=== PATIENT | male | born 1940 | race Caucasian/White ===

== ENCOUNTER 2018-08-22 09:21 | Inpatient (IN) ==
[2018-08-22 10:28] LABS: Baso % (Auto) 0.3 % (0.0-2.0); Hematocrit 22.2 % (39.0-51.0); Hemoglobin 7.3 gm/dL (13.0-17.0); Lymph # (Auto) 1.6 th/mm3 (1.0-4.8); Lymph % (Auto) 12.2 % (9.0-44.0); Mean Corpuscular HGB Conc 32.9 % (32.0-36.0); Mean Corpuscular Hemoglobin 30.1 pg (27.0-34.0); Mean Corpuscular Volume 91.3 fL (80.0-100.0); Mean Platelet Volume 10.3 fL (7.0-11.0); Mono % (Auto) 7.2 % (0.0-8.0); Neut # (Auto) 10.9 th/mm3 (1.8-7.7); Neut % (Auto) 80.3 % (16.0-70.0); Platelet Count 199 th/mm3 (150-450); Red Blood Count 2.43 mil/mm3 (4.50-5.90); Red Cell Distribution Width 17.3 % (11.6-17.2); White Blood Count 13.5 th/mm3 (4.0-11.0)
--- NOTE | 2018-08-22 10:29 | XR ---
EXAM DATE: 08/22/2018 10:07 AM EDT AGE/SEX: 78 years / Male INDICATIONS: Short of breath. CLINICAL DATA: This is the patient's initial encounter. Patient reports that signs and symptoms have been present for 1 day and indicates a pain score of 0/10. MEDICAL/SURGICAL HISTORY: Congestive heart failure. None. COMPARISON: No prior exams available for comparison. FINDINGS: The heart is enlarged. Increased interstitial infiltrates are noted bilaterally consistent with moder ate pulmonary edema or pneumonia. Small right pleural effusion is noted. Degenerative changes are not ed involving the shoulders bilaterally. CONCLUSION: 1. Diffuse interstitial infiltrates consistent with moderate pulmonary edema versus pneumonia. Clini kaur correlation is recommended. 2. Cardiomegaly. 3. Small right pleural effusion. 4. Degenerative changes involving the shoulders bilaterally. Electronically signed by: Edgar Clarke MD 08/22/2018 10:28 AM EDT
[2018-08-22 10:38] LABS: Alanine Aminotransferase 272 U/L (12-78); Albumin 2.3 g/dL (3.4-5.0); Anion Gap 21 meq/L (5-15); Aspartate Aminotransferase 464 U/L (15-37); Blood Urea Nitrogen 31 mg/dL (7-18); Calcium 7.8 mg/dL (8.5-10.1); Carbon Dioxide 19.2 meq/L (21.0-32.0); Chloride 98 meq/L (98-107); Glomerular Filtration Rate 34 mL/min (>89); Glucose,Random 181 mg/dL (74-106); INR 1.7 Ratio; Potassium 5.3 meq/L (3.5-5.1); Prothrombin Time 16.7 sec (9.8-11.6); Sodium 138 meq/L (136-145)
[2018-08-22 10:42] LABS: Alkaline Phosphatase 64 U/L (45-117); Total Protein 5.7 g/dL (6.4-8.2)
[2018-08-22 10:45] LABS: Troponin I 5.46 ng/mL (0.02-0.05)
[2018-08-22] MEDS ORDERED: Sodium Chlor 0.9% Inj 500 ML IV.SIG SCH (11:00)
--- NOTE | 2018-08-22 11:04 | CT ---
EXAM DATE: 08/22/2018 10:10 AM EDT AGE/SEX: 78 years / Male INDICATIONS: Altered mental status. CLINICAL DATA: This is the patient's initial encounter. Patient reports that signs and symptoms have been present for 1 day and indicates a pain score of 2/10. MEDICAL/SURGICAL HISTORY: Congestive heart failure. Chronic obstructive pulmonary disease. Hypert ension. heart attack None. RADIATION DOSE: 6634 CTDI (mGy) COMPARISON: No prior exams available for comparison. TECHNIQUE: CT of the head without contrast. Using automated exposure control and adjustment of the mA and/or kV according to patient size, radiation dose was kept as low as reasonably achievable to ob tain optimal diagnostic quality images. DICOM format image data is available electronically for revi ew and comparison. FINDINGS: Cerebrum: The ventricles are normal for age. No evidence of midline shift, mass lesion, hemorrhage or acute infarction. No extraaxial fluid collections are seen. Posterior Fossa: The cerebellum and brainstem are intact. The 4th ventricle is midline. The cerebe llopontine angle is unremarkable. Extracranial: The visualized portion of the orbits is intact. Skull: The calvaria is intact. No evidence of skull fracture. CONCLUSION: 1. Negative for an acute process . Electronically signed by: Asad Cevallos MD 08/22/2018 11:02 AM EDT
[2018-08-22 11:37] LABS: Bilirubin,Urine Negative (Negative); Clarity,Urine Clear (Clear); Color,Urine Yellow (Yellw/Straw); Glucose,Urine (UA) Negative (Negative); Leukocyte Esterase,Urine Negative (Negative); Mucus,Urine Few /lpf (Occasional); Nitrite,Urine Negative (Negative); Specific Gravity,Urine 1.009 (1.002-1.035); Squamous Epithelial Cell,Urine 1 /hpf (0-5)
--- NOTE | 2018-08-22 11:52 | ED ---
HPI General Chief Complaint: Syncope Stated Complaint: Syncope Time Seen by Provider: 08/22/18 09:31 Source: EMS, RN notes reviewed and old records reviewed Mode of arrival: EMS Limitations: altered mental status History of Present Illness HPI narrative: The patient 78 years old and arrives by EMS from [facility]. He was sat upright in bed by his physician there and evidently experienced a near syncope episode twice. He arrives to the ED unable to participate with history and physical exam due to fatigue and decreased interaction overall. The patient arrives with paperwork from outside hospital, [facility], which reveals history of COPD, atrial fibrillation on Eliquis, CHF with an EF of 25-30%, new lung masses, NSTEMI status post coronary catheterization with circumflex, RCA and LAD disease however it is unclear if stenting was performed based on available records. MD complaint: felt faint and almost passed out Onset (ago): minute(s) (30) -: second(s) Witnessed: yes - by bystander Context: at rest Injuries sustained associated with event: none Current symptoms: none Related Data Home Medications Medication Instructions Recorded Confirmed apixaban [Eliquis] 5 mg PO BID 08/22/18 08/22/18 aspirin 325 mg PO DAILY 08/22/18 08/22/18 carvedilol [Coreg] 3.125 mg PO BID 08/22/18 08/22/18 formoterol fumarate 2 ml INHALATION BID 08/22/18 08/22/18 furosemide [Lasix] 20 mg PO BID 08/22/18 08/22/18 ipratropium-albuterol 3 ml INHALATION Q6HR PRN 08/22/18 08/22/18 lisinopril 2.5 mg PO DAILY 08/22/18 08/22/18 potassium chloride 10 meq PO BID 08/22/18 08/22/18 Allergies Allergy/AdvReac Type Severity Reaction Status Date / Time heparin Allergy Hives Verified 08/22/18 09:32 Review of Systems ROS: all other systems reviewed are negative [facility] Medical History Medical History A-fib (Acute) CHF (congestive heart failure) (Acute) COPD (chronic obstructive pulmonary disease) (Acute) Chest pain (Acute) HTN (hypertension) (Acute) Heart attack (Acute) Lung mass (Acute) Social History Social History Substance History: No History of Abuse Smoking Status: Current some day smoker Tobacco Type: Cigarettes How Often Do You Have a Drink Containing Alcohol: Never Recent Travel in [facility] [[email or web address]] within the Last 8 Weeks: No Recent Out of Country Travel within the Last 8 Weeks: No Exam Narrative Exam Narrative: GENERAL: 78-year-old male, whispers yes or no occasionally to some questions however does not speak in sentences and shift his gaze forward or away during the interview SKIN: Large ecchymosis overlying the right lateral chest wall. HEAD: Atraumatic. Normocephalic. EYES: Pupils equal and round. No scleral icterus. No injection or drainage. ENT: No nasal bleeding or discharge. Mucous membranes pink and moist. NECK: Trachea midline. No JVD. CARDIOVASCULAR: Heart rate approximately 95. Regular RESPIRATORY: Coarse breath sounds bilaterally GASTROINTESTINAL: Abdomen soft, non-tender, nondistended. Hepatic and splenic margins not palpable. RECTAL: Large volume of black stool. Stool guaiac positive MUSCULOSKELETAL: Global atrophy. No gross deformity. NEUROLOGICAL: No focal cranial nerve deficit. ANO x1. PSYCHIATRIC: Unable to assess Procedures Intubation Time Out Performed: No Sedative: etomidate Mg Given: 20 Paralytic: succinylcholine Mg Given: 100 Laryngoscope: Holden ET Tube Size: 8 ET Tube Uncuffed: Yes Tube Secured Depth (cm): 24 Tube Secured Location: lips Tube Placement Confirmation: visualized tube passing through cords, equal breath sounds bilaterally, no breath sounds over epigastrium and confirmation by capnometry Patient Tolerated Procedure: well Intubation Complications: none Course Initial Documented Vital Signs Temperature 97.9 F 08/22/18 09:32 Pulse Rate 96 H 08/22/18 09:32 Respiratory Rate 17 08/22/18 09:32 Blood Pressure 79/52 L 08/22/18 09:32 Last Documented Vital Signs Temperature 97.4 F L 08/22/18 09:43 Pulse Rate 94 H 08/22/18 12:04 Respiratory Rate 27 H 08/22/18 11:17 Blood Pressure 72/50 L 08/22/18 12:04 Pulse Oximetry 100 08/22/18 11:17 Critical Care Time Critical Care Time: Yes Total Critical Care Time: 50 Attestation: Aggregate critical care time was 50 minutes. Time to perform other separately billable procedures was not included in the critical care time. My time did not include minutes spent treating any other patients simultaneously or on activities that did not directly contribute to the patient's treatment. The services I provided to this patient were to treat and/or prevent clinically significant deterioration that could result in: Anoxic brain injury, multiorgan injury, respiratory arrest, cardiopulmonary arrest I provided critical care services requiring my management, as noted below: Chart data review, documentation time, medication orders and management, vital sign assessments/reviewing monitor data, ordering and reviewing lab tests, ordering and interpreting/reviewing x-rays and diagnostic studies, care of the patient and discussion of the patient with the admitting physicians. Medical Decision Making MDM Narrative Medical decision making narrative: Patient arrives with hypotension 70/50. Evidently he had received a liter of saline prior to ER arrival. 500 cc ordered here. Case discussed with Dr. Sow of cardiology for the troponin of 5. The patient required intubation at approximately 12:10 PM. The case was discussed with patient's son Evgeny Garber. Code status is no compressions however abx, pressure support and mechanical ventilation OK. Cefepime and Vanco started. Blood cultures drawn. Case discussed with Dr. Chavira for the health and safety inspector service. Medical Screen Exam Complete: Yes Emergency Medical Condition: Yes Differential Diagnosis Differential Diagnosis: Anemia, sepsis, respiratory failure Medical Records Medical records reviewed: Yes I reviewed the patient's medical records. Lab Data Lab results reviewed: Yes I reviewed the patient's lab results. Lab results narrative: Tn 5.46 BNP 4500 Result diagrams: 08/22/18 10:08 08/22/18 10:08 Lab Results 08/22/18 08/22/18 08/22/18 Range/Units 10:08 10:08 10:08 WBC 13.5 H (4.0-11.0) th/mm3 RBC 2.43 L (4.50-5.90) mil/mm3 Hgb 7.3 L (13.0-17.0) gm/dL Hct 22.2 L (39.0-51.0) % MCV 91.3 (80.0-100.0) fL MCH 30.1 (27.0-34.0) pg MCHC 32.9 (32.0-36.0) % RDW 17.3 H (11.6-17.2) % Plt Count 199 (150-450) th/mm3 MPV 10.3 (7.0-11.0) fL Neut % (Auto) 80.3 H (16.0-70.0) % Lymph % (Auto) 12.2 (9.0-44.0) % [place] % (Auto) 7.2 (0.0-8.0) % Eos % (Auto) 0.0 (0.0-4.0) % Baso % (Auto) 0.3 (0.0-2.0) % Neut # (Auto) 10.9 H (1.8-7.7) th/mm3 Lymph # (Auto) 1.6 (1.0-4.8) th/mm3 [place] # (Auto) 1.0 H (0.0-0.9) th/mm3 Eos # (Auto) 0.0 (0.0-0.4) th/mm3 Baso # (Auto) 0.0 (0.0-0.2) th/mm3 WBC Differential . Differential Comment Auto diff final PT 16.7 H (9.8-11.6) sec INR 1.7 Ratio APTT 32.0 H (24.3-30.1) sec Sodium 138 (136-145) meq/L Potassium 5.3 H (3.5-5.1) meq/L Chloride 98 (98-107) meq/L Carbon Dioxide 19.2 L (21.0-32.0) meq/L Anion Gap 21 H (5-15) meq/L BUN 31 H (7-18) mg/dL Creatinine 1.92 H (0.60-1.30) mg/dL Estimated GFR 34 L (>89) mL/min POC Glucose (68-110) mg/dl Random Glucose 181 H (74-106) mg/dL Calcium 7.8 L (8.5-10.1) mg/dL Total Bilirubin 1.2 H (0.2-1.0) mg/dL AST 464 H (15-37) U/L ALT 272 H (12-78) U/L Alkaline Phosphatase 64 (45-117) U/L Troponin I 5.46 H* (0.02-0.05) ng/mL B-Natriuretic Peptide (0-100) pg/mL Total Protein 5.7 L (6.4-8.2) g/dL Albumin 2.3 L (3.4-5.0) g/dL Urine Color (Yellw/Straw) Urine Clarity (Clear) Urine pH (5.0-8.5) Ur Specific [place] (1.002-1.035) Urine Protein (Neg-Trace) mg/dL Urine Glucose (UA) (Negative) mg/dL Urine Ketones (Negative) mg/dL Urine Occult Blood (Negative) Urine Nitrate (Negative) Urine Bilirubin (Negative) Urine Urobilinogen (Less than 2) mg/dL Ur Leukocyte Esterase (Negative) Urine RBC (0-3) /hpf Urine WBC (0-5) /hpf Ur Squamous Epith Cells (0-5) /hpf Urine Mucus (Occasional) /lpf Ur Microscopic Review Blood Type Antibody Screen MTS Gel Crossmatch 08/22/18 08/22/18 08/22/18 Range/Units 10:08 11:12 11:34 WBC (4.0-11.0) th/mm3 RBC (4.50-5.90) mil/mm3 Hgb (13.0-17.0) gm/dL Hct (39.0-51.0) % MCV (80.0-100.0) fL MCH (27.0-34.0) pg MCHC (32.0-36.0) % RDW (11.6-17.2) % Plt Count (150-450) th/mm3 MPV (7.0-11.0) fL Neut % (Auto) (16.0-70.0) % Lymph % (Auto) (9.0-44.0) % [place] % (Auto) (0.0-8.0) % Eos % (Auto) (0.0-4.0) % Baso % (Auto) (0.0-2.0) % Neut # (Auto) (1.8-7.7) th/mm3 Lymph # (Auto) (1.0-4.8) th/mm3 [place] # (Auto) (0.0-0.9) th/mm3 Eos # (Auto) (0.0-0.4) th/mm3 Baso # (Auto) (0.0-0.2) th/mm3 WBC Differential Differential Comment PT (9.8-11.6) sec INR Ratio APTT (24.3-30.1) sec Sodium (136-145) meq/L Potassium (3.5-5.1) meq/L Chloride (98-107) meq/L Carbon Dioxide (21.0-32.0) meq/L Anion Gap (5-15) meq/L BUN (7-18) mg/dL Creatinine (0.60-1.30) mg/dL Estimated GFR (>89) mL/min POC Glucose (68-110) mg/dl Random Glucose (74-106) mg/dL Calcium (8.5-10.1) mg/dL Total Bilirubin (0.2-1.0) mg/dL AST (15-37) U/L ALT (12-78) U/L Alkaline Phosphatase (45-117) U/L Troponin I (0.02-0.05) ng/mL B-Natriuretic Peptide 4218 H (0-100) pg/mL Total Protein (6.4-8.2) g/dL Albumin (3.4-5.0) g/dL Urine Color Yellow (Yellw/Straw) Urine Clarity Clear (Clear) Urine pH 7.0 (5.0-8.5) Ur Specific [place] 1.009 (1.002-1.035) Urine Protein Negative (Neg-Trace) mg/dL Urine Glucose (UA) Negative (Negative) mg/dL Urine Ketones Negative (Negative) mg/dL Urine Occult Blood Small H (Negative) Urine Nitrate Negative (Negative) Urine Bilirubin Negative (Negative) Urine Urobilinogen Less than 2 (Less than 2) mg/dL Ur Leukocyte Esterase Negative (Negative) Urine RBC 1 (0-3) /hpf Urine WBC 1 (0-5) /hpf Ur Squamous Epith Cells 1 (0-5) /hpf Urine Mucus Few H (Occasional) /lpf Ur Microscopic Review Not Reportable Blood Type O Negative Antibody Screen Negative MTS Gel Crossmatch See Detail 08/22/18 Range/Units 11:56 WBC (4.0-11.0) th/mm3 RBC (4.50-5.90) mil/mm3 Hgb (13.0-17.0) gm/dL Hct (39.0-51.0) % MCV (80.0-100.0) fL MCH (27.0-34.0) pg MCHC (32.0-36.0) % RDW (11.6-17.2) % Plt Count (150-450) th/mm3 MPV (7.0-11.0) fL Neut % (Auto) (16.0-70.0) % Lymph % (Auto) (9.0-44.0) % [place] % (Auto) (0.0-8.0) % Eos % (Auto) (0.0-4.0) % Baso % (Auto) (0.0-2.0) % Neut # (Auto) (1.8-7.7) th/mm3 Lymph # (Auto) (1.0-4.8) th/mm3 [place] # (Auto) (0.0-0.9) th/mm3 Eos # (Auto) (0.0-0.4) th/mm3 Baso # (Auto) (0.0-0.2) th/mm3 WBC Differential Differential Comment PT (9.8-11.6) sec INR Ratio APTT (24.3-30.1) sec Sodium (136-145) meq/L Potassium (3.5-5.1) meq/L Chloride (98-107) meq/L Carbon Dioxide (21.0-32.0) meq/L Anion Gap (5-15) meq/L BUN (7-18) mg/dL Creatinine (0.60-1.30) mg/dL Estimated GFR (>89) mL/min POC Glucose 163 H (68-110) mg/dl Random Glucose (74-106) mg/dL Calcium (8.5-10.1) mg/dL Total Bilirubin (0.2-1.0) mg/dL AST (15-37) U/L ALT (12-78) U/L Alkaline Phosphatase (45-117) U/L Troponin I (0.02-0.05) ng/mL B-Natriuretic Peptide (0-100) pg/mL Total Protein (6.4-8.2) g/dL Albumin (3.4-5.0) g/dL Urine Color (Yellw/Straw) Urine Clarity (Clear) Urine pH (5.0-8.5) Ur Specific [place] (1.002-1.035) Urine Protein (Neg-Trace) mg/dL Urine Glucose (UA) (Negative) mg/dL Urine Ketones (Negative) mg/dL Urine Occult Blood (Negative) Urine Nitrate (Negative) Urine Bilirubin (Negative) Urine Urobilinogen (Less than 2) mg/dL Ur Leukocyte Esterase (Negative) Urine RBC (0-3) /hpf Urine WBC (0-5) /hpf Ur Squamous Epith Cells (0-5) /hpf Urine Mucus (Occasional) /lpf Ur Microscopic Review Blood Type Antibody Screen MTS Gel Crossmatch Imaging Data Radiologist's impression: Head CT 08/22/18 10:03 CONCLUSION: 1. Negative for an acute process . Chest X-Ray 08/22/18 10:07 CONCLUSION: 1. Diffuse interstitial infiltrates consistent with moderate pulmonary edema versus pneumonia. Clinical correlation is recommended. 2. Cardiomegaly. 3. Small right pleural effusion. 4. Degenerative changes involving the shoulders bilaterally. ECG Data EKG Prior to Arrival: Yes Attestation: I personally reviewed and interpreted this ECG as follows: (rate 96 , ST changes diffusely, normal axis/intervals) Discharge Plan Discharge Disposition Patient Disposition: 30 Still Patient Physicians Team ED Provider: Jason Silver Primary Care Provider: Noemi Thurman Attending Provider: Lainey Chavira Discharge Interventions Interventions: Vital Signs Last Done: 08/22/18 12:04 Status ED Status: Admitted Patient
[2018-08-22] MEDS ORDERED: Etomidate Inj 40 MG/20 ML Vial IV.PUSH ONE ×2 (11:57→11:59)
[2018-08-22] MEDS ORDERED: Succinylcholine Inj 200 MG/10 ML Vial ONE (11:58)
[2018-08-22] MEDS ORDERED: Vancomycin Inj 1 GM/200 ML PIGGYBACK IV.SIG SCH (12:00)
[2018-08-22] MEDS ORDERED: Norepinephrine Inj 4 MG/4 ML Ampul ONE (12:12)
[2018-08-22] MEDS ORDERED: fentaNYL 10 mcg/mL Premix Drip 2,500 MCG/250 ML BAG IV.SIG PRN (12:34)
[2018-08-22] MEDS ORDERED: Midazolam 50 MG/50 ML Inj 50 MG/50 ML BAG IV.CONT ONE (12:41)
[2018-08-22] MEDS: Midazolam 50 MG/50 ML Inj 50 MG/50 ML BAG IV.CONT PRN ×2 (12:43→16:42)
[2018-08-22 12:59] LABS: ABG Base Excess -14.6 mmol/L (-2-2); ABG PCO2 24 mmHg (38-42); ABG PO2 393 mmHg (61-120)
[2018-08-22] MEDS ORDERED: Morphine Inj 4 MG/ML Vial IV.PUSH PRN (13:04)
--- NOTE | 2018-08-22 13:20 | P.HPCC ---
History of Present Illness Primary Care Physician: Noemi Thurman MD Chief Complaint: syncope, AMS History of Present Illness: Patient is intubated at this point and all history is obtained from the ED notes and from the ED physician. Apparently patient is a 78 years old male, is a resident of [facility] with past medical history significant for COPD, atrial fibrillation on Eliquis, CHF with an EF of 25-30%, new lung masses (recent biopsy at [facility]), NSTEMI ( catheterization with circumflex, RCA and LAD disease per [facility] records). He was brought in today by EMS from [facility] after two near syncope episode. He was fatigued and lethargic in the emergency department. Appears critically ill, was intubated for airway protection. ER workup showed his white count 13.5, hemoglobin 7.3, INR 1.7. He had black tarry stools in the ED which was guaiac positive. Patient had a BUN 31 creatinine 1.92, ALT AST was elevated 464/272. Also troponin was elevated at 5.42 BNP was 4218. Chest x-ray showed pulmonary vascular congestion and right pleural effusion. I evaluated the patient in the emergency department he was just intubated now under the influence of anesthesia medication. Patient is hypotensive with systolic blood pressure 68, I emergently placed a right subclavian central line and started him on Levophed. Will avoid further fluid resuscitation due to evidence of CHF, BNP more than 4000 and pulmonary vascular congestion on CXR. His troponin was 5 and cardiology had been consulted. Unfortunately due to active GI bleed we cannot anticoagulate or use antiplatelet therapy. Patient has a LifeVest in place we do not have any records of this in this hospital. Echo had been ordered but the previous ejection fraction reported is 25-30%. I also ordered a stat lactic acid which came back at 15. Overall his prognosis appears very poor I will also get palliative care involved early. Received vancomycin and cefepime. CT scan shows consolidation and lung nodules. Continue antibiotics with Zosyn and azithromycin - Diagnosis (1) Acute respiratory failure (2) NSTEMI (non-ST elevated myocardial infarction) (3) GIB (gastrointestinal bleeding) (4) Anemia requiring transfusions (5) CHF exacerbation (6) Systolic heart failure (7) Lactic acidosis (8) Septic shock (9) Cardiogenic shock (10) Transaminitis (11) HCAP (healthcare-associated pneumonia) (12) Coronary artery disease (13) Ischemic cardiomyopathy (14) COPD (chronic obstructive pulmonary disease) (15) Chronic atrial fibrillation (16) Malnutrition (17) Debility Inpatient Certification: I certify that the inpatient services were ordered in accordance with Medicare regulations governing the order. This includes certification that hospital inpatient services are reasonable and necessary and in the case of services not specified as inpatient-only under 42 CFR 419.22(n), that they are appropriately provided as inpatient services in accordance to with the 2-midnight benchmark under 43 CFR 412.3(e) Estimated Total Length of Stay (Days): 7 Plans for Post Hospital Care: Not yet determined Review of Systems unobtainable due to endotracheal tube PMFSH - History History Provided By: Patient - Medical History Medical History: Medical History (Last Updated 08/22/18 @ 09:49 by Evelin Vasquez) A-fib CHF (congestive heart failure) COPD (chronic obstructive pulmonary disease) Chest pain HTN (hypertension) Heart attack Lung mass - Surgical History Surgical History: Surgical History (Last Updated 08/22/18 @ 16:27 by RUSSEL Amaral) History of cardiac cath - Family History Family History: Family History (Last Updated 08/22/18 @ 16:28 by RUSSEL Amaral) Brother H/O tongue cancer - Tobacco History Tobacco Use In Past 30 Days: Yes Smoking Status: Current some day smoker Tobacco Type: Cigarettes - Alcohol History How Often Do You Have a Drink Containing Alcohol: Never - Substance Use History Substance History: No History of Abuse - Travel History Recent Travel in the [place] Within the Last 8 Weeks: No Recent Travel Out of the Country Within the Last 8 Weeks: No - Immunization History Tetanus Immunization: Unsure Hx Influenza Vaccine This Season: Yes Medications and Allergies Active Medications: Active Medications Albuterol (Duoneb Neb (Prn)) 1 ampul NEB Q4HR NEB PRN PRN Reason: SHORTNESS OF BREATH Albuterol (Duoneb Neb (James)) 1 ampul NEB Q6HR NEB JAMES Chlorhexidine Gluconate (Chlorhexidine 2% Cloth) 3 pack TOPICAL DAILY@0400 JAMSE Stop: 08/28/18 03:59 Chlorhexidine Gluconate (Chlorhexidine 2% Cloth) 3 pack TOPICAL DAILY@0400 PRN PRN Reason: Extra cloth needed Stop: 08/28/18 03:59 Famotidine (Pepcid Pf Inj) 20 mg IV.PUSH Q12HR JAMES Vancomycin/Sodium Chloride (Vancomycin Inj) 1 gm in 200 mls @ 200 mls/hr IV.SIG MODEL MAKER PLASTER JAMES Fentanyl (Fentanyl 10 Mcg/Ml Premix Drip) 2,500 mcg in 250 mls @ 5 mls/hr IV.SIG TITRATE PRN; Protocol PRN Reason: Per Protocol Midazolam HCl (Versed Inj) 50 mg in 50 mls @ 2 mls/hr IV.CONT TITRATE PRN; Protocol PRN Reason: Per Protocol Last Admin: 08/22/18 12:43 Dose: 5 mg/hr, 5 mls/hr Morphine Sulfate (Morphine Inj) 2 mg IV.PUSH Q2H PRN PRN Reason: PAIN SCALE 6 TO 10 Allergies Allergy/AdvReac Type Severity Reaction Status Date / Time heparin Allergy Hives Verified 08/22/18 09:32 Home Medications Medication Instructions Recorded Confirmed Type apixaban [Eliquis] 5 mg PO BID 08/22/18 08/22/18 History aspirin 325 mg PO DAILY 08/22/18 08/22/18 History carvedilol [Coreg] 3.125 mg PO BID 08/22/18 08/22/18 History formoterol fumarate 2 ml INHALATION BID 08/22/18 08/22/18 History furosemide [Lasix] 20 mg PO BID 08/22/18 08/22/18 History ipratropium-albuterol 3 ml INHALATION Q6HR PRN 08/22/18 08/22/18 History lisinopril 2.5 mg PO DAILY 08/22/18 08/22/18 History potassium chloride 10 meq PO BID 08/22/18 08/22/18 History Results - Labs CBC & Chem 7: 08/22/18 10:08 08/22/18 10:08 Labs: Short CBC 08/22/18 Range/Units 10:08 WBC 13.5 H (4.0-11.0) th/mm3 Hgb 7.3 L (13.0-17.0) gm/dL Hct 22.2 L (39.0-51.0) % Plt Count 199 (150-450) th/mm3 [facility] 08/22/18 10:08 Sodium 138 Potassium 5.3 H Chloride 98 Carbon Dioxide 19.2 L BUN 31 H Creatinine 1.92 H Calcium 7.8 L Cardiac Enzymes 08/22/18 Range/Units 10:08 Troponin I 5.46 H* (0.02-0.05) ng/mL Liver Function 08/22/18 Range/Units 10:08 Total Bilirubin 1.2 H (0.2-1.0) mg/dL AST 464 H (15-37) U/L ALT 272 H (12-78) U/L Alkaline Phosphatase 64 (45-117) U/L Albumin 2.3 L (3.4-5.0) g/dL Urine 08/22/18 Range/Units 11:12 Urine Color Yellow (Yellw/Straw) Urine Clarity Clear (Clear) Urine pH 7.0 (5.0-8.5) Ur Specific [place] 1.009 (1.002-1.035) Urine Protein Negative (Neg-Trace) mg/dL Urine Glucose (UA) Negative (Negative) mg/dL - Imaging Impressions Head CT 08/22/18 10:03 CONCLUSION: 1. Negative for an acute process . Chest X-Ray 08/22/18 10:07 CONCLUSION: 1. Diffuse interstitial infiltrates consistent with moderate pulmonary edema versus pneumonia. Clinical correlation is recommended. 2. Cardiomegaly. 3. Small right pleural effusion. 4. Degenerative changes involving the shoulders bilaterally. Exam Vital signs: Vital Signs 08/22/18 09:32 08/22/18 09:43 08/22/18 10:29 Temperature 97.9 F 97.4 F L Pulse Rate 96 H 93 H Respiratory Rate 17 22 Blood Pressure 79/52 L 86/50 L Pulse Oximetry 100 08/22/18 11:17 08/22/18 12:04 Temperature Pulse Rate 91 H 94 H Respiratory Rate 27 H Blood Pressure 92/53 L 72/50 L Pulse Oximetry 100 Intake & Output 08/21/18 08/22/18 08/22/18 18:59 06:59 18:59 Intake Total 600 / 600 Balance 600 / 600 Intake: IV 600 / 600 Maxipime Inj 1,000 MG In NS Inj 100 / 100 100 ML @ 200 mls/hr IV.SIG ONCE ONE Rx#:[id number] NS Inj 500 ML @ Wide Open IV. 500 / 500 SIG BOLUS JAMES Rx#:[id number] Narrative: 78-year-old male, who is intubated currently under the influence of intubating medications SKIN: Large ecchymosis over right lateral chest wall. HEAD: Atraumatic. Normocephalic. EYES: Pupils equal and round. No scleral icterus. No injection or drainage. ENT: No nasal bleeding or discharge. Mucous membranes dry NECK: Trachea midline. No JVD. CARDIOVASCULAR: Heart rate 80-90 bpm, hypotensive. Getting started on Levophed. Life vest in place RESPIRATORY: Coarse breath sounds bilaterally, diminished at the bases. Dressing to the right posterior upper chest most likely from recent biopsy GASTROINTESTINAL: Abdomen soft, non-tender, nondistended. Hepatic and splenic margins not palpable. RECTAL (done by ED physician): Large volume of black stool. Stool guaiac positive MUSCULOSKELETAL: No deformity. 2+ pedal edema NEUROLOGICAL: Intubated sedated moves all extremities. Not following commands at this time Septic Shock Reassessment Septic shock perfusion: reassessment completed Caprini VTE Risk Assessment Caprini VTE Risk Assessment: Moderate/High Risk (score >= 2) Caprini Risk Assessment Model: Point Value = 1 Point Value = 2 Point Value = 3 Point Value = 5 Age 41-60 Minor surgery BMI > 25 kg/m2 Swollen legs Varicose veins or History of unexplained or recurrent spontaneous Oral contraceptives or hormone replacement Sepsis (< 1 month) Serious lung disease, including pneumonia (< 1 month) Abnormal pulmonary function Acute myocardial infarction Congestive heart failure (< 1 month) History of inflammatory bowel disease Medical patient at bed rest Age 61-74 Arthroscopic surgery Major open surgery (> 45 min) Laparoscopic surgery (> 45 min) Malignancy Confined to bed (> 72 hours) Immobilizing plaster cast Central venous access Age >= 75 History of VTE Family history of VTE Factor V Leiden Prothrombin [id number] Lupus anticoagulant Anticardiolipin antibodies Elevated serum homocysteine Heparin-induced thrombocytopenia Other congenital or acquired thrombophilia Stroke (< 1 month) Elective arthroplasty Hip, pelvis, or leg fracture Acute spinal cord injury (< 1 month) Prophylaxis Regimen: Total Risk Factor Score Risk Level Prophylaxis Regimen 0-1 Low Early ambulation 2 Moderate Order ONE of the following: *Sequential Compression Device (SCD) *Heparin 5000 units SQ BID 3-4 Higher Order ONE of the following medications: *Heparin 5000 units SQ TID *Enoxaparin/Lovenox 40 mg SQ daily (WT < 150 kg, CrCl > 30 mL/min) *Enoxaparin/Lovenox 30 mg SQ daily (WT < 150 kg, CrCl > 10-29 mL/min) *Enoxaparin/Lovenox 30 mg SQ BID (WT < 150 kg, CrCl > 30 mL/min) AND/OR *Sequential Compression Device (SCD) 5 or more Highest Order ONE of the following medications: *Heparin 5000 units SQ TID (Preferred with Epidurals) *Enoxaparin/Lovenox 40 mg SQ daily (WT < 150 kg, CrCl > 30 mL/min) *Enoxaparin/Lovenox 30 mg SQ daily (WT < 150 kg, CrCl > 10-29 mL/min) *Enoxaparin/Lovenox 30 mg SQ BID (WT < 150 kg, CrCl > 30 mL/min) AND *Sequential Compression Device (SCD) Assessment and Plan - Problem List (1) Acute respiratory failure Code(s): J96.00 - Acute respiratory failure, unspecified whether with hypoxia or hypercapnia Status: Acute (2) NSTEMI (non-ST elevated myocardial infarction) Code(s): I21.4 - Non-ST elevation (NSTEMI) myocardial infarction Status: Acute (3) GIB (gastrointestinal bleeding) Code(s): K92.2 - Gastrointestinal hemorrhage, unspecified Status: Acute (4) Anemia requiring transfusions Code(s): D64.9 - Anemia, unspecified Status: Acute (5) CHF exacerbation Code(s): I50.9 - Heart failure, unspecified Status: Acute (6) Systolic heart failure Code(s): I50.20 - Unspecified systolic (congestive) heart failure Status: Acute (7) Lactic acidosis Code(s): E87.2 - Acidosis Status: Acute (8) Septic shock Code(s): A41.9 - Sepsis, unspecified organism; R65.21 - Severe sepsis with septic shock Status: Acute (9) Cardiogenic shock Code(s): R57.0 - Cardiogenic shock Status: Acute (10) Transaminitis Code(s): R74.0 - Nonspecific elevation of levels of transaminase and lactic acid dehydrogenase [LDH] Status: Acute (11) HCAP (healthcare-associated pneumonia) Code(s): J18.9 - Pneumonia, unspecified organism Status: Acute (12) Coronary artery disease Code(s): I25.10 - Atherosclerotic heart disease of [place] coronary artery without angina pectoris Status: Chronic (13) Ischemic cardiomyopathy Code(s): I25.5 - Ischemic cardiomyopathy Status: Chronic (14) COPD (chronic obstructive pulmonary disease) Code(s): J44.9 - Chronic obstructive pulmonary disease, unspecified Status: Chronic (15) Chronic atrial fibrillation Code(s): I48.2 - Chronic atrial fibrillation Status: Chronic (16) Malnutrition Code(s): E46 - Unspecified protein-calorie malnutrition Status: Chronic (17) Debility Code(s): R53.81 - Other malaise Status: Chronic - Assessment and Plan Plan: NEURO: Acute metabolic encephalopathy -Versed for sedation and vent synchrony -Altered mentation secondary to severe sepsis, metabolic encephalopathy -CT of the head no acute finding RESP: Acute respiratory failure Impaired airway protection Healthcare associated pneumonia Right more than left pleural effusion COPD Lung nodules s/p biopsy -PRVC/AC, Ventilator bundle -DuoNeb every 6 hours scheduled and as needed -CT shows evidence of consolidation, right more than left pleural effusion, probable lung nodules -We will discuss with family regarding workup for lung nodules-apparently had a lung nodule biopsy at [facility] in [facility] -Get records from previous hospitalization -Plan for right thoracentesis with further studies -Broad-spectrum antibiotic with Zosyn and azithromycin CV: NSTEMI Septic and cardiogenic shock Lactic acidosis Acute systolic heart failure exacerbation Ischemic cardiomyopathy History of multivessel coronary artery disease Chronic atrial fibrillation -Unable to anticoagulate due to GI bleed, hold antiplatelet therapy also pending GI clearance -Cardiology Dr. Sow consulted he has started on IV Lasix for CHF exacerbation -Start milrinone for inotropic support initiate Alvarez Trac monitoring, Levophed to keep map above 65 -Hold home medication Eliquis at this time -Unable to use beta blockers or statins at this time due to shock and transaminitis GI/HEME: Acute GIB Shock liver Anemia requiring transfusion -N.p.o., IV Protonix 80 mg IVP and 8 mg/h -CT abdomen pelvis is pending at this -GI consulted -Transfuse 2 units of PRBC, transfuse 1 unit of FFP : Acute kidney failure -Monitor renal function closely. Place Higgins catheter. -Most likely ATN from sepsis and shock -Continue IV Lasix per cardiology orders ID: Septic shock Healthcare associated pneumonia -Antibiotics-received vancomycin and cefepime in the ED. Placed on renally dosed Zosyn and azithromycin -Follow-up on blood urine and sputum cultures -Trend lactic acid ENDO: -Electrolyte replacement per protocol -Sliding scale insulin PROPH: -Bilateral lower extremity SCDs. IV Protonix. Hold pharmacological DVT prophylaxis due to GI bleed LINES: -Utilize peripheral IVs, right subclavian central line placed 08/22/2018 CC time 128 min excluding procedures Patient is critically ill with guarded prognosis due to multiorgan failure. He has acute GI bleed with anemia, septic and cardiogenic shock, acute myocardial infarction, severe lactic acidosis, renal failure, and respiratory failure. He may have underlying lung cancer in his malnourished and debilitated. Prognosis very poor and I will consult palliative care to assist with decision-making and goals of care Code Status: Full Discussed Condition With: Dr. Silver
--- NOTE | 2018-08-22 13:24 | XR ---
EXAM DATE: 08/22/2018 12:00 AM EDT AGE/SEX: 78 years / Male INDICATIONS: Status post intubation and central line placement. CLINICAL DATA: This is the patient's initial encounter. Patient reports that signs and symptoms have been present for 1 day and indicates a pain score of Nonresponsive. MEDICAL/SURGICAL HISTORY: Non-responsive. Non-responsive. COMPARISON: [facility], CHEST 1V SINGLE AP, 08/22/2018. . FINDINGS: External defibrillator noted. Central line and ET tube in good position. Moderate right pleural effus ion. Consolidative changes left base. CONCLUSION: Support apparatus in good position. Electronically signed by: Asad Cevallos MD 08/22/2018 1:23 PM EDT
[2018-08-22] MEDS ORDERED: Etomidate Inj 20 MG/10 ML Ampul IV.PUSH ONE (13:30)
[2018-08-22] MEDS ORDERED: Succinylcholine Inj 100 MG/5 ML Syringe IV.PUSH ONE (13:30)
[2018-08-22 14:04] VITALS: RESP 16
--- NOTE | 2018-08-22 14:08 | MB ---
cc: Blanco Sow MD DATE: 08/22/2018 REASON FOR CONSULTATION: Abnormal cardiac enzymes, respiratory failure. HISTORY OF PRESENT ILLNESS: History is currently unobtainable from the patient who is intubated and sedated. He is a 78-year-old white male, followed in our office by Dr. Geoff Melo, with a history of multiple medical problems including severe aortic stenosis, paroxysmal atrial fibrillation, severe ischemic cardiomyopathy, coronary artery disease, peripheral vascular disease, who was brought in from the [facility] due to a couple episodes of near syncope. Here in the Emergency Department, he developed severe respiratory distress necessitating intubation and placement on mechanical ventilation. The patient apparently was at [facility] in [place] recently where he was found to have severe aortic stenosis and severe coronary artery disease as well as severely reduced ejection fraction of 20% to 25%. He was recommended medical therapy at that time. PAST MEDICAL HISTORY: 1. COPD. 2. Severe aortic stenosis demonstrated by echocardiography last month at [facility] (valve area 0.6 square cm). 3. Paroxysmal atrial fibrillation. 4. Congestive heart failure 07/2018 associated with severe ischemic cardiomyopathy. His ejection fraction was 20% to 25% by transesophageal echo 08/03/2018. 5. Coronary artery disease, status post non-ST elevation myocardial infarction last month with cardiac catheterization 08/03/2018 showing 40% proximal LAD stenosis, 70% ostial and 80% mid left circumflex disease, totally occluded proximal right coronary. 6. Peripheral vascular disease with 80% right common iliac stenosis demonstrated on angiogram 08/03/2018. 7. Heparin-induced thrombocytopenia. 8. Possible apical thrombus seen on transesophageal echo last month. 9. Hyperlipidemia. CARDIAC MEDICATIONS AT HOME: 1. Potassium chloride 10 mEq b.i.d. 2. Furosemide 20 mg b.i.d. 3. Lisinopril 2.5 mg daily. 4. Carvedilol 3.125 mg b.i.d. 5. Aspirin 325 mg daily. 6. Apixaban 5 mg b.i.d. ALLERGIES: HEPARIN FAMILY HISTORY: Noncontributory. SOCIAL HISTORY: The patient apparently is a former smoker. There is no history of alcohol abuse. REVIEW OF SYSTEMS: As in the history of present illness, otherwise currently unobtainable. PHYSICAL EXAMINATION: VITAL SIGNS: Blood pressure 72/50 with a pulse of 94, respirations 25. GENERAL: He is a well-developed, thin white male, currently intubated and sedated. NECK: Jugular venous pressure is normal. Carotid pulses are 1+ bilaterally and without definite bruit. CHEST: Reveals scattered rhonchi. CARDIAC: On cardiac examination, auscultation is difficult. There appears to be regular rhythm and rate with a grade 1-2 over 6 systolic ejection murmur heard at the base. It is difficult to hear the second heart sound. No definite gallop is audible. ABDOMEN: He has a soft abdomen. Bowel sounds are present. There is no definite hepatosplenomegaly. EXTREMITIES: Reveals no clubbing or cyanosis. There is 1+ pretibial edema bilaterally. LABORATORY DATA: Includes WBC 13.5, hemoglobin 7.3, platelets 199. INR 1.7, potassium 5.3, BUN 31, creatinine 1.92. Troponin 5.46. AST 464, ALT 272. Brain natriuretic peptide level of 4218. Chest x-ray shows diffuse interstitial infiltrates consistent with pulmonary edema and a small right pleural effusion. EKG shows sinus rhythm, ST and T-wave abnormality diffusely, consider ischemia. IMPRESSION: Respiratory failure/acute congestive heart failure, probable acute coronary syndrome, severe anemia in this 78-year-old white male with a history of chronic obstructive pulmonary disease, severe aortic stenosis, paroxysmal atrial fibrillation, severe ischemic cardiomyopathy with ejection fraction of 20% to 25%, severe 2-vessel coronary artery disease by cardiac catheterization last month, possible left ventricular apical thrombus, heparin-induced thrombocytopenia. Cardiac enzymes and EKG are most suggestive of acute coronary syndrome/non-ST elevation myocardial infarction. Cardiac catheterization last month apparently showed severe 2-vessel coronary artery disease including total occlusion of the right coronary. It is unclear whether he had good left to right collaterals from the report. Given his comorbid conditions, he apparently was recommended medical therapy. In addition, reportedly he has severe aortic stenosis by both transthoracic and transesophageal echocardiography last month in [place]. Exam is difficult. At this point, he is a poor, high risk candidate for aortic valve replacement/coronary bypass grafting. Chest x-ray, laboratory data, exam are also consistent with acute moderate to severe congestive heart failure. Reportedly, his ejection fraction was 20% to 25% last month. By EKG and current monitoring, he does appear to remain in sinus rhythm. Although his thromboembolic risk is high, he is not a candidate for anticoagulation therapy at this time with his severe anemia, possible gastrointestinal bleeding. He apparently may have left ventricular apical thrombus as well. RECOMMENDATIONS: 1. Overall, conservative cardiac management. His prognosis is poor. 2. Hold his MODESTO inhibitor and beta [place] due to ongoing hypotension. 3. If okay from a medical/GI standpoint, would try to continue at least baby aspirin given his history of coronary artery disease, paroxysmal atrial fibrillation, left ventricular apical thrombus. 4. Gentle diuresis. Blanco Sow MD [facility]/ct , 01:24 PM , 01:37 PM JAROCHO
[2018-08-22 14:14] LABS: Troponin I 8.89 ng/mL (0.02-0.05)
[2018-08-22] MEDS ORDERED: Piperacil/Tazo 3.375 GM Premix 50 ML IV.SIG SCH ×2 (14:30→15:00)
[2018-08-22 14:31] LABS: Creatine Kinase MB 58.6 ng/mL (0.5-3.6)
[2018-08-22 14:44] LABS: CKMB Percent 15.5 % (0.0-4.0)
--- NOTE | 2018-08-22 14:53 | CT ---
EXAM DATE: 08/22/2018 1:37 PM EDT AGE/SEX: 78 years / Male INDICATIONS: Transaminitis, sepsis. CLINICAL DATA: This is the patient's initial encounter. Patient reports that signs and symptoms have been present for 1 day and indicates a pain score of Nonresponsive. MEDICAL/SURGICAL HISTORY: Congestive heart failure. Chronic obstructive pulmonary disease. Hypert ension. heart attack, A-fib, None. RADIATION DOSE: 5.51 CTDI (mGy) ; Combined studies COMPARISON: No prior exams available for comparison. TECHNIQUE: Multiple contiguous axial images were obtained through the chest without contrast. Image s were obtained in suspended respiration using multiple row detector helical technique. Using automa jevon exposure control and adjustment of the mA and/or kV according to patient size, radiation dose was kept as low as reasonably achievable to obtain optimal diagnostic quality images. DICOM format imag e data is available electronically for review and comparison. FINDINGS: Lungs: Passive atelectasis adjacent to the effusions. This is more pronounced on the right. Scattere d small areas of consolidation within the left lower lobe as well as both upper lobes. Some of these areas are nodular in appearance. In particular within the right upper lobe medially there is a 2.7 x 1.9 x 1.3 cm area of nodularity with irregular margination and hazy groundglass opacity adjacent to i t. Within the central portion of the left upper lobe there is a 1 cm area of nodularity which is rela tively lucent centrally but without cavitation.. Mediastinum: The heart is normal in size. No pericardial effusion. Pronounced coronary artery and ao rtic atherosclerotic calcifications are noted. No adenopathy. Pleurae: A moderate-sized posterior layering pleural effusion on the right. A small left pleural eff usion posteriorly. There is smooth linear calcification involving the pleura bilaterally within the b ases predominantly.. Axillae: Unremarkable. Bony Structures: Unremarkable. Miscellaneous: An endotracheal tube seen with the tip 5 cm from the av. Nasogastric tube and rig ht subclavian central line noted. Partial visualization of the pancreas shows diffuse calcifications throughout the parenchyma. CONCLUSION: 1. Moderate right and small left pleural effusion with associated passive atelectasis. 2. Scattered areas of consolidation throughout both lungs including areas of nodularity within both upper lobes. Infectious or inflammatory processes are favored. I cannot completely exclude an underly ing malignancy and therefore a follow-up CT of the thorax is suggested following resolution of the ac ramona symptoms. 3. Severe coronary artery and aortic atherosclerotic calcifications. Electronically signed by: Juan Manuel Greer MD 08/22/2018 2:52 PM EDT
--- NOTE | 2018-08-22 14:56 | P.CONPAL ---
Consult Service: Palliative Care Requesting Physician: Lainey Chavira Reason for Consult: a. To assist with evaluation and management of symptoms including: dyspnea, pain b. To assist medical decision maker(s) with: better understanding of current medical conditions; weighing benefits/burdens of medical treatment options; making medical treatment decisions. Primary Care Provider: Noemi Thurman MD History of Present Illness History of Present Illness: This is a 78 yo male with hx AF on eliquis, CHF with EF 25-30%, severe aortic stenosis, severe ischemic cardiomyopathy, PVD, COPD, HTN, lung masses, NSTEMI s/ p cath who presented from [facility] via EMS 08/22 with syncope, AMS , fatigue. He apparently presented with records from [facility] showing recent lung masses, NSTEMI s/p coronary cath with findings of circumflex, RCA, and LAD disease and no mention of stenting. CXR showed diffuse interstitial infiltrates, cardiomegaly, small right pleural effusion. Chest CT showed small left pleural effusion, scattered consolidation and areas of nodularity in both upper lung lobes infectious vs inflammatory, cannot exclude malignancy, severe coronary artery and aortic calcifications. He was noted to have guaiac pos melanotic stool in ER. labs notable for creatinine 1.92, ALT 464, AST 272, troponin 5.42, BNP 4218, hgb 7.3, WBC 13.5, lactic acid 15. Pt was intubated in the ER and transferred to [facility]. Per CCM pt was hypotensive with systolic of 68. Pt has lifevest in place. Per cardiology pt had HELENA 07/2018 which showed CHF, EF 20-25%. Pt had cath 08/03/18 showing 40% proximal LAD stenosis, 70% ostial and 80% mid circumflex disease, occluded proximal coronary artery; 80% right common iliac stenosis per angiogram 08/03/18; possible apical thrombus seen on HELENA. Pt is poor candidate for aortic valve replacement. He is not candidate for anticoagulation therapy d/t anemia and possible GI bleeding. Cardiology recommending conservative mgmt. Per pt's son Evgeny, pt had some kind of cardiac event in July and went to the hospital. He was discharged to [facility] for rehab and continued to complain of chest pain and BLE edema after his discharge. Pt was trying to avoid doctors and the hospital. Pt did have a lung bx last week, his son thinks at [facility] and was scheduled to get results tomorrow. Hx limited as pt is intubated and son lives in [place] and was not that close to his father. On my eval pt is intubated on vent, under warming blanket, temp 96.3. Hypotensive. No signs pain or distress. Sedated. s/p thoracentesis. On milrinone and levophed. Function/Cognitive Trajectory: Prior to hospitalization 07/2018 pt was living alone and caring for himself. After his cardiac event and hospitalization in Jul, pt was in rehab. He was reportedly suffering from continued chest pain and leg edema. Review of Systems unobtainable due to endotracheal tube (obtained to best of my ability from EMR, family), unobtainable due to mental condition Constitutional: Reports fatigue, Reports weakness Eyes: Denies blurry vision Cardiovascular: Reports chest pain, Reports fainting, Reports leg swelling, Reports lightheadedness Gastrointestinal: Denies abdominal pain PMFSH - History History Provided By: Patient - Medical History Medical History: Medical History (Last Updated 08/22/18 @ 09:49 by Evelin Vasquez) A-fib CHF (congestive heart failure) COPD (chronic obstructive pulmonary disease) Chest pain HTN (hypertension) Heart attack Lung mass - Surgical History Surgical History: Surgical History (Last Updated 08/22/18 @ 16:27 by RUSSEL Amaral) History of cardiac cath - Family History Family History: Family History (Last Updated 08/22/18 @ 16:28 by RUSSEL Amaral) Brother H/O tongue cancer - Tobacco History Tobacco Use In Past 30 Days: Yes Smoking Status: Current some day smoker Tobacco Type: Cigarettes - Alcohol History How Often Do You Have a Drink Containing Alcohol: 2 to 3 times a week (until 2017) - Substance Use History Substance History: No History of Abuse - Travel History Recent Travel in the USA Within the Last 8 Weeks: No Recent Travel Out of the Country Within the Last 8 Weeks: No - Immunization History Tetanus Immunization: Unsure Hx Influenza Vaccine This Season: Yes Medications and Allergies Active Medications: Active Medications Albuterol (Duoneb Neb (Prn)) 1 ampul NEB Q4HR NEB PRN PRN Reason: SHORTNESS OF BREATH Albuterol (Duoneb Neb (James)) 1 ampul NEB Q6HR NEB JAMES Aspirin (Aspirin Chew) 81 mg PO DAILY JAMES Chlorhexidine Gluconate (Chlorhexidine 2% Cloth) 3 pack TOPICAL DAILY@0400 JAMES Stop: 08/28/18 03:59 Chlorhexidine Gluconate (Chlorhexidine 2% Cloth) 3 pack TOPICAL DAILY@0400 PRN PRN Reason: Extra cloth needed Stop: 08/28/18 03:59 Chlorhexidine Gluconate (Peridex 0.12% Oral Kit) 15 ml OROPHARYNG BID@0800, 2000 JAMES Famotidine (Pepcid Pf Inj) 20 mg IV.PUSH Q12HR JAMES Furosemide (Lasix Inj) 40 mg IV.PUSH DAILY JAMES Vancomycin/Sodium Chloride (Vancomycin Inj) 1 gm in 200 mls @ 200 mls/hr IV.SIG SALES DATA ANALYST [facility] Fentanyl (Fentanyl 10 Mcg/Ml Premix Drip) 2,500 mcg in 250 mls @ 5 mls/hr IV.SIG TITRATE PRN; Protocol PRN Reason: Per Protocol Midazolam HCl (Versed Inj) 50 mg in 50 mls @ 2 mls/hr IV.CONT TITRATE PRN; Protocol PRN Reason: Per Protocol Last Admin: 08/22/18 12:43 Dose: 5 mg/hr, 5 mls/hr Pantoprazole Sodium 80 mg/ (Sodium Chloride) 100 mls @ 10 mls/hr IV.CONT CONT JAMES Pantoprazole Sodium 80 mg/ (Sodium Chloride) 35 mls @ 420 mls/hr IV.SIG BOLUS ONE Stop: 08/22/18 15:04 Norepinephrine Bitartrate (Levophed-Dextrose 4 Mg/250 Ml Drip) 4 mg in 250 mls @ 7.5 mls/hr IV.SIG TITRATE PRN; Protocol PRN Reason: Per Protocol Last Titration: 08/22/18 13:49 Dose: 12 mcg/min, 45 mls/hr Milrinone Lactate 20 mg/ (Sodium Chloride) 100 mls @ 0 mls/hr IV.CONT .Q0M JAMES ; Protocol Albumin Human (Flexbumin 25% Inj) 100 mls @ 60 mls/hr IV.SIG Q12H JAMES Sodium Bicarbonate 150 meq/ (Sterile Water) 1,000 mls @ 100 mls/hr IV.CONT .Q10H JAMES Piperacillin/Tazobactam/Dextrose (Zosyn 3.375 Gm Premix) 50 mls @ 100 mls/hr IV.SIG Q8H JAMES Miscellaneous Medication () 1 each OROPHARYNG 0000,0400,1200,1600 JAMES Morphine Sulfate (Morphine Inj) 2 mg IV.PUSH Q2H PRN PRN Reason: PAIN SCALE 6 TO 10 Allergies Allergy/AdvReac Type Severity Reaction Status Date / Time heparin Allergy Hives Verified 08/22/18 09:32 Home Medications Medication Instructions Recorded Confirmed Type apixaban [Eliquis] 5 mg PO BID 08/22/18 08/22/18 History aspirin 325 mg PO DAILY 08/22/18 08/22/18 History carvedilol [Coreg] 3.125 mg PO BID 08/22/18 08/22/18 History formoterol fumarate 2 ml INHALATION BID 08/22/18 08/22/18 History furosemide [Lasix] 20 mg PO BID 08/22/18 08/22/18 History ipratropium-albuterol 3 ml INHALATION Q6HR PRN 08/22/18 08/22/18 History lisinopril 2.5 mg PO DAILY 08/22/18 08/22/18 History potassium chloride 10 meq PO BID 08/22/18 08/22/18 History Advance Directives Healthcare Surrogate: Yes (per pt's son) Health Care Surrogate Name and Number: pending provision of document Ethical and Legal Issues: Pt is not capacitated to make medical decisions and it is unclear if he will regain capacity. Per [place] statutes proxy decision maker will fall the the majority of his adult siblings. HIs son Evgeny says he is the [facility] and will send us the paperwork this evening. Physical Exam Vital Signs: Vital Signs - 24 hr 08/22/18 09:32 08/22/18 09:43 08/22/18 10:29 Temperature 97.9 F 97.4 F L Pulse Rate 96 H 93 H Respiratory Rate 17 22 Blood Pressure 79/52 L 86/50 L Pulse Oximetry 100 08/22/18 11:17 08/22/18 12:04 08/22/18 13:00 Temperature Pulse Rate 91 H 94 H 84 Respiratory Rate 27 H 16 Blood Pressure 92/53 L 72/50 L 100/62 Pulse Oximetry 100 100 08/22/18 13:53 08/22/18 14:04 Temperature Pulse Rate 82 Respiratory Rate 16 Blood Pressure 97/54 L Pulse Oximetry 100 100 I&O: Intake & Output 08/20/18 08/21/18 08/22/18 08/23/18 06:59 06:59 06:59 06:59 Intake Total 600 / 600 Balance 600 / 600 Physical Exam: CONSTITUTIONAL/GENERAL: frail appearing pt TUBES/LINES/DRAINS: OETT SKIN: Pale. No jaundice, rashes, or lesions. No wounds seen anteriorly. Not diaphoretic. HEAD: Atraumatic. Normocephalic. EYES: No scleral icterus. No injection or drainage. Fundi not examined. ENT: unable to assess hearing. Nose without bleeding or purulent drainage. Throat exam inhibited by OETT NECK: Trachea midline. Supple, nontender. CARDIOVASCULAR: RRR without murmurs, gallops, or rubs. RESPIRATORY/CHEST: Symmetric, unlabored respirations. +Rhonchi. Breath sounds equal bilaterally. GASTROINTESTINAL: Abdomen soft, nondistended. No hepato-splenomegaly, or palpable masses. No guarding. Bowel sounds present. GENITOURINARY: Without palpable bladder distension. Higgins catheter in place. MUSCULOSKELETAL: Extremities without clubbing, cyanosis, or edema. +muscle atrophty BLE. NEUROLOGICAL:sedated on vent. PSYCHIATRIC: unable to assess, sedated on vent Diagnostic Tests Laboratory: Laboratory Results - last 72 hr 08/22/18 08/22/18 08/22/18 10:08 10:08 10:08 WBC 13.5 H RBC 2.43 L Hgb 7.3 L Hct 22.2 L MCV 91.3 MCH 30.1 MCHC 32.9 RDW 17.3 H Plt Count 199 MPV 10.3 Neut % (Auto) 80.3 H Lymph % (Auto) 12.2 Elliott % (Auto) 7.2 Eos % (Auto) 0.0 Baso % (Auto) 0.3 Neut # (Auto) 10.9 H Lymph # (Auto) 1.6 Elliott # (Auto) 1.0 H Eos # (Auto) 0.0 Baso # (Auto) 0.0 WBC Differential . Differential Comment Auto diff final PT 16.7 H INR 1.7 APTT 32.0 H Puncture Site Patient Temperature O2 Saturation ABG pH ABG pCO2 ABG pO2 ABG HCO3 ABG O2 Content ABG Base Excess ABG Methemoglobin Cristopher Test Hemoglobin Carboxyhemoglobin O2 Delivery Device Vent Setting Inspired O2 Critical Value Sodium 138 Potassium 5.3 H Chloride 98 Carbon Dioxide 19.2 L Anion Gap 21 H BUN 31 H Creatinine 1.92 H Estimated GFR 34 L POC Glucose Random Glucose 181 H Lactic Acid Calcium 7.8 L Total Bilirubin 1.2 H AST 464 H ALT 272 H Alkaline Phosphatase 64 Total Creatine Kinase CK-MB (CK-2) CK-MB (CK-2) % Troponin I 5.46 H* B-Natriuretic Peptide Total Protein 5.7 L Albumin 2.3 L Urine Color Urine Clarity Urine pH Ur Specific [place] Urine Protein Urine Glucose (UA) Urine Ketones Urine Occult Blood Urine Nitrate Urine Bilirubin Urine Urobilinogen Ur Leukocyte Esterase Urine RBC Urine WBC Ur Squamous Epith Cells Urine Mucus Ur Microscopic Review Blood Type Antibody Screen MTS Gel Crossmatch 08/22/18 08/22/18 08/22/18 10:08 11:12 11:34 WBC RBC Hgb Hct MCV MCH MCHC RDW Plt Count MPV Neut % (Auto) Lymph % (Auto) Elliott % (Auto) Eos % (Auto) Baso % (Auto) Neut # (Auto) Lymph # (Auto) Elliott # (Auto) Eos # (Auto) Baso # (Auto) WBC Differential Differential Comment PT INR APTT Puncture Site Patient Temperature O2 Saturation ABG pH ABG pCO2 ABG pO2 ABG HCO3 ABG O2 Content ABG Base Excess ABG Methemoglobin Cristopher Test Hemoglobin Carboxyhemoglobin O2 Delivery Device Vent Setting Inspired O2 Critical Value Sodium Potassium Chloride Carbon Dioxide Anion Gap BUN Creatinine Estimated GFR POC Glucose Random Glucose Lactic Acid Calcium Total Bilirubin AST ALT Alkaline Phosphatase Total Creatine Kinase CK-MB (CK-2) CK-MB (CK-2) % Troponin I B-Natriuretic Peptide 4218 H Total Protein Albumin Urine Color Yellow Urine Clarity Clear Urine pH 7.0 Ur Specific [place] 1.009 Urine Protein Negative Urine Glucose (UA) Negative Urine Ketones Negative Urine Occult Blood Small H Urine Nitrate Negative Urine Bilirubin Negative Urine Urobilinogen Less than 2 Ur Leukocyte Esterase Negative Urine RBC 1 Urine WBC 1 Ur Squamous Epith Cells 1 Urine Mucus Few H Ur Microscopic Review Not Reportable Blood Type O Negative Antibody Screen Negative MTS Gel Crossmatch See Detail 08/22/18 08/22/18 08/22/18 11:56 12:38 13:18 WBC RBC Hgb Hct MCV MCH MCHC RDW Plt Count MPV Neut % (Auto) Lymph % (Auto) Elliott % (Auto) Eos % (Auto) Baso % (Auto) Neut # (Auto) Lymph # (Auto) Elliott # (Auto) Eos # (Auto) Baso # (Auto) WBC Differential Differential Comment PT INR APTT Puncture Site Left radial Patient Temperature 98.6 O2 Saturation 98 ABG pH 7.28 L* ABG pCO2 24 L* ABG pO2 393 H ABG HCO3 11 L* ABG O2 Content 11.2 L ABG Base Excess -14.6 L ABG Methemoglobin 0.6 Cristopher Test Present Hemoglobin 7.4 L* Carboxyhemoglobin 2.0 O2 Delivery Device Vent Vent Setting [id number] Inspired O2 100 Critical Value Yes Sodium Potassium Chloride Carbon Dioxide Anion Gap BUN Creatinine Estimated GFR POC Glucose 163 H Random Glucose Lactic Acid Calcium Total Bilirubin AST ALT Alkaline Phosphatase Total Creatine Kinase 377 H CK-MB (CK-2) 58.6 H CK-MB (CK-2) % 15.5 H* Troponin I 8.89 H* B-Natriuretic Peptide Total Protein Albumin Urine Color Urine Clarity Urine pH Ur Specific [place] Urine Protein Urine Glucose (UA) Urine Ketones Urine Occult Blood Urine Nitrate Urine Bilirubin Urine Urobilinogen Ur Leukocyte Esterase Urine RBC Urine WBC Ur Squamous Epith Cells Urine Mucus Ur Microscopic Review Blood Type Antibody Screen MTS Gel Crossmatch 08/22/18 13:29 WBC RBC Hgb Hct MCV MCH MCHC RDW Plt Count MPV Neut % (Auto) Lymph % (Auto) Elliott % (Auto) Eos % (Auto) Baso % (Auto) Neut # (Auto) Lymph # (Auto) Elliott # (Auto) Eos # (Auto) Baso # (Auto) WBC Differential Differential Comment PT INR APTT Puncture Site Patient Temperature O2 Saturation ABG pH ABG pCO2 ABG pO2 ABG HCO3 ABG O2 Content ABG Base Excess ABG Methemoglobin Cristopher Test Hemoglobin Carboxyhemoglobin O2 Delivery Device Vent Setting Inspired O2 Critical Value Sodium Potassium Chloride Carbon Dioxide Anion Gap BUN Creatinine Estimated GFR POC Glucose Random Glucose Lactic Acid 15.0 H* Calcium Total Bilirubin AST ALT Alkaline Phosphatase Total Creatine Kinase CK-MB (CK-2) CK-MB (CK-2) % Troponin I B-Natriuretic Peptide Total Protein Albumin Urine Color Urine Clarity Urine pH Ur Specific [place] Urine Protein Urine Glucose (UA) Urine Ketones Urine Occult Blood Urine Nitrate Urine Bilirubin Urine Urobilinogen Ur Leukocyte Esterase Urine RBC Urine WBC Ur Squamous Epith Cells Urine Mucus Ur Microscopic Review Blood Type Antibody Screen MTS Gel Crossmatch Result Diagrams: 08/22/18 10:08 08/22/18 10:08 Imaging: ITS Impressions Head CT 08/22/18 10:03 CONCLUSION: 1. Negative for an acute process . Chest X-Ray 08/22/18 10:07 CONCLUSION: 1. Diffuse interstitial infiltrates consistent with moderate pulmonary edema versus pneumonia. Clinical correlation is recommended. 2. Cardiomegaly. 3. Small right pleural effusion. 4. Degenerative changes involving the shoulders bilaterally. Chest CT 08/22/18 13:31 CONCLUSION: 1. Moderate right and small left pleural effusion with associated passive atelectasis. 2. Scattered areas of consolidation throughout both lungs including areas of nodularity within both upper lobes. Infectious or inflammatory processes are favored. I cannot completely exclude an underlying malignancy and therefore a follow-up CT of the thorax is suggested following resolution of the acute symptoms. 3. Severe coronary artery and aortic atherosclerotic calcifications. Abdomen/Pelvis CT 08/22/18 14:12 CONCLUSION: 1. Moderate-sized bilateral pleural effusions. 2. 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 3. Bibasilar alveolar consolidations consistent with compressive atelectasis/ or infiltrates. 4. Diffuse urinary bladder wall thickening suggesting cystitis. 5. Uncomplicated colonic diverticulosis. 6. Multiple stable bilateral renal cysts. 7. Diffuse calcifications throughout the pancreas consistent with chronic calcific pancreatitis. 8. Coronary artery calcifications. 9. Degenerative changes throughout the thoracolumbar spine. Procedures: 08/22 intubated 08/22 central line 08/22 thoracentesis Patient/Family Conference Present at Family Conference: Pt mariam Pepper Family Conference Time: 25 Family Conference Location: Telephone Issues Discussed: * Palliative care role, purpose, approach * Additional medical, psychosocial, and spiritual history * limited review Patients general health, functional status, and cognitive changes in the months leading up to the current hospitalization * family understanding of the current medical problems * family understanding of prognosis * Patients goals of care as best understood from advance directives - Evgeny claims to be [facility], pending provision of documentation * Current medical treatment options and benefits/burdens of those options * Likely scenarios comparing ongoing aggressive care with a transition to comfort measures only * code status * Questions answered to the best of my ability * Palliative care contact information provided Per pt's son Evgeny pt was DNR and this form along with [facility] paperwork is in his possession in [place]. Goals pending further discussion but likely to be comfort oriented based on initial discussion. pt's son has good insight. Assessment and Plan - Disease Oriented Problem List (1) Acute respiratory failure (2) NSTEMI (non-ST elevated myocardial infarction) (3) GIB (gastrointestinal bleeding) (4) Anemia requiring transfusions (5) CHF exacerbation (6) Systolic heart failure (7) Ischemic cardiomyopathy - Symptom Scale (1) Pain 0-10 Scale: Unable to quantify (2) Dyspnea 0-10 Scale: Unable to quantify Pertinent Non-Medical Issues: Psychosocial: Pt originally from [place]. 2nd last year. He is a retired lead electrician. Has 4 children. Spiritual: mormon. no pastoral care requested at this time Legal: Pt is not capacitated to make medical decisions and it is unclear if he will regain capacity. Per [place] statutes proxy decision maker will fall the the majority of his adult siblings. HIs son Evgeny says he is the [facility] and will send us the paperwork this evening. Ethical issues impacting care: none Important Contacts: Awilda Garber [phone], cell [phone] son Evgeny Garber [phone] Prognosis: 78 yo male with hx AF on eliquis, CHF with EF 25-30%, severe aortic stenosis, severe ischemic cardiomyopathy, PVD, COPD, HTN, lung masses, NSTEMI s/p cath who presented from [facility] via EMS 08/22 with syncope, AMS, fatigue. Found to have PNA, lung nodules, NSTEMI, septic and cardiogenic shock , GIB, anemia, shock liver, JOANN. Prognosis poor given multi organ dysfunction, significant cardiac and pulmonary comorbidities. If he survives this hospitalization it is unlikely he could return to his baseline. Code Status: Full Code Plan: - LEGAL DECISION MAKER -Pt is not capacitated to make medical decisions and it is unclear if he will regain capacity. Per [place] statutes proxy decision maker will fall the the majority of his adult siblings. HIs son Evgeny says he is the [facility] and will send us the paperwork this evening. - CODE STATUS- pending further discussion and provision of documentation - GOALS - Per pt's son Evgeny pt was DNR and this form along with [facility] paperwork is in his possession in [place]. Goals pending further discussion but likely to be comfort oriented based on initial discussion. pt's son has good insight. - SYMPTOMS - * dyspnea - multlifactorial. PNA, [place], AF, , CAD. intubated on vent. has duonebs, abx for PNA, versed gtt, levophed gtt. mgmt per CCM, no recs at this time * pain - multifactorial - 2/2 mult lines, tubes. c/o chest pain in last month. no sign distress on my eval. has fentanyl gtt. no recs at this time - d/w RN, d/w Dr Chavira - Palliative care will continue to follow during hospital course as condition evolves, to assist patient/decision-maker with understanding of medical conditions, weighing benefits/burdens of treatment options, for clarification of goals of treatment. Additionally will assist with any symptoms of palliative concern Appreciation Thank you for the opportunity to participate in the care of Evgeny Carson.
[2018-08-22] MEDS ORDERED: Pantoprazole Inj 80 MG in Sodium Chlor 0.9% Inj 35 ML IV.SIG ONE (15:00)
[2018-08-22] MEDS ORDERED: Milrinone Inj 20 MG in Sodium Chlor 0.9% Inj 80 ML IV.CONT SCH (15:00)
[2018-08-22] MEDS ORDERED: Pantoprazole Inj 80 MG in Sodium Chlor 0.9% Inj 100 ML IV.CONT SCH (15:00)
[2018-08-22 15:05] VITALS: O2SAT 98
[2018-08-22] MEDS ORDERED: Magnesium Oxide 400 MG Tablet PO PRN (15:08)
[2018-08-22] MEDS ORDERED: Potassium Chlor 40 mEq Premix 40 MEQ/100 ML PIGGYBACK IV.SIG PRN ×2 (15:08)
[2018-08-22] MEDS ORDERED: Potassium Chloride 25 MEQ Effervescent Tablet PO PRN (15:08)
[2018-08-22] MEDS ORDERED: Magnesium Sulfate Inj 4 GM in Sodium Chlor 0.9% Inj 92 ML IV.SIG PRN (15:08)
[2018-08-22] MEDS ORDERED: Potassium Phosphate 500 MG Soluble Tablet PO PRN ×2 (15:08)
[2018-08-22] MEDS ORDERED: Potassium Phosphate Inj 30 MMOL in Sodium Chlor 0.9% Inj 250 ML IV.SIG PRN (15:08)
[2018-08-22] MEDS ORDERED: Sodium Phosphate Inj 30 MMOL in Sodium Chlor 0.9% Inj 250 ML IV.SIG PRN (15:08)
[2018-08-22] MEDS ORDERED: Potassium Chlor 20 mEq Premix 20 MEQ/100 ML PIGGYBACK IV.SIG PRN ×2 (15:08)
[2018-08-22] MEDS ORDERED: Magnesium Sulfate Inj 2 GM in Sodium Chlor 0.9% Inj 96 ML IV.SIG PRN (15:08)
--- NOTE | 2018-08-22 15:12 | P.PCN ---
Date of procedure: 08/22/18 Pre-op diagnosis: Septic and cardiogenic shock Post-op diagnosis: same Procedure: Right subclavian central line placement US guided central line Central line checklist completed, timeout completed. I wore a surgical cap, mask with protective eyewear, full gown and sterile gloves throughout the procedure. Right subclavian region was prepped using chlorhexidine scrub and draped in sterile fashion. Anesthesia was achieved over the vein using 1% lidocaine. The introducer needle was inserted into the right subclavian vein. Venous blood was withdrawn. The syringe was removed and a guidewire was advanced into the introducer needle. A small incision was made at the skin surface with a scalpel and the introducer needle was exchanged for a dilator over the guidewire. After appropriate dilation was obtained, the dilator was exchanged over the wire for a triple lumen, 7F, antibiotic coated central venous catheter. The wire was removed and the catheter was sutured in place at 17 cm. A sterile central line dressing was placed over the catheter at the insertion site. The patient tolerated the procedure without any hemodynamic compromise. At time of procedure completion, all ports aspirated and flushed properly. Post-procedure chest x-ray is pending at this time. Anesthesia: local Surgeon: Lainey Chavira Estimated blood loss (mL): 2 Pathology: none sent Condition: critical Disposition: ICU
--- NOTE | 2018-08-22 15:46 | CT ---
EXAM DATE: 08/22/2018 2:24 PM EDT AGE/SEX: 78 years / Male INDICATIONS: Transaminitis, sepsis. CLINICAL DATA: This is the patient's initial encounter. Patient reports that signs and symptoms have been present for 1 day and indicates a pain score of Nonresponsive. MEDICAL/SURGICAL HISTORY: Chronic obstructive pulmonary disease. Congestive heart failure. Hy pertension. heart attack, A-fib None. RADIATION DOSE: 5.51 CTDI (mGy) ; Combined studies COMPARISON: POI, CT ABDOMEN AND PELVIS W/ CONTRAST, 09/24/2014. . TECHNIQUE: Multiple contiguous axial images were obtained through the abdomen. Images were obtained using multiple row detector helical technique. Using automated exposure control and adjustment of the mA and/or kV according to patient size, radiation dose was kept as low as reasonably achievable to o btain optimal diagnostic quality images. DICOM format image data is available electronically for rev iew and comparison. FINDINGS: Lower Lungs: Moderate-sized pleural effusions are noted bilaterally. 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 Bibasilar alveolar consolidations are noted consistent with compressive atelectasis and/or infiltrates. Coronary artery calcifications are noted. Liver: The liver has a homogeneous density without space-occupying lesion. There is no dilation of th e biliary tree. Spleen: Homogeneous density without enlargement. Pancreas: Calcifications are noted throughout the pancreatic parenchyma consistent with chronic calc ific pancreatitis. Kidneys: Normal in size and shape. No evidence of mass or hydronephrosis. Multiple bilateral renal c ysts are noted and are essentially stable compared to previous examination in September 2014. No acute obstructive uropathy is noted. Adrenal Glands: Unremarkable. Aorta: The aorta and proximal iliac vessels are grossly unremarkable without aneurysmal dilation. Bowel/Mesentery: Uncomplicated colonic diverticulosis is noted. No acute diverticulitis is noted. Abdominal Wall: Intact. Retroperitoneum: No evidence of adenopathy in the retrocrural, para-aortic, or deep pelvic regions. Bladder: The urinary bladder is nondistended and contains a Higgins catheter. The wall of the urinary b ladder is diffusely thickened. Reproductive Organs: No abnormal masses or calcifications seen. Inguinal: The inguinal region is unremarkable without evidence of adenopathy. Bony Structures: Degenerative changes are noted throughout the thoracolumbar spine. CONCLUSION: 1. Moderate-sized bilateral pleural effusions. 2. 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 3. Bibasilar alveolar consolidations consistent with compressive atelectasis/or infiltrates. 4. Diffuse urinary bladder wall thickening suggesting cystitis. 5. Uncomplicated colonic diverticulosis. 6. Multiple stable bilateral renal cysts. 7. Diffuse calcifications throughout the pancreas consistent with chronic calcific pancreatitis. 8. Coronary artery calcifications. 9. Degenerative changes throughout the thoracolumbar spine. Electronically signed by: Edgar Clarke MD 08/22/2018 3:45 PM EDT
[2018-08-22 15:55] VITALS: PULSE 80
[2018-08-22] MEDS: Oral Hygiene Kit OROPHARYNG SCH ×3 (16:03→17:41)
--- NOTE | 2018-08-22 16:32 | P.PCN ---
Date of procedure: 08/22/18 Pre-op diagnosis: Large right pleural effusion Post-op diagnosis: same Procedure: Ultrasound-guided right thoracentesis PROCEDURE SUMMARY: A time out was performed and the chest x-ray was reviewed, the appropriate side was confirmed and marked. My hands were washed immediately prior to the procedure. I wore a surgical cap, mask with protective eyewear, sterile gown and sterile gloves throughout the procedure. The patient was prepped and draped in a sterile manner using chlorhexidine scrub after the appropriate level was percussed and confirmed by ultrasound. 1% lidocaine was used to anesthetize the skin, subcutaneous tissue, superior aspect of the rib periosteum and parietal pleura. A 10-blade scalpel was used to elvira the skin at the insertion site. The thoracentesis Angiocath was then introduced through the skin incision into the pleural space using negative aspiration pressure and slightly blood-tinged slightly cloudy pleural fluid was obtained.. The thoracentesis catheter was then threaded without difficulty and the needle and syringe were removed. 1200 ml of slightly cloudy slightly blood-tinged, pleural fluid was removed without difficulty, and acting to a Vacutainer. The catheter was then removed. No immediate complications were noted during the procedure. A post-procedure chest x-ray is pending at the time of this note. The fluid will be sent for studies. Anesthesia: local Surgeon: Lainey Chavira Estimated blood loss (mL): 1 Pathology: other Condition: critical Disposition: ICU (Fluid studies sent)
--- NOTE | 2018-08-22 16:51 | P.CONGI ---
History of Present Illness Consult date: 08/22/18 Consult reason: GI bleed, anemia, melena stools Chief complaint: Respiratory Arrest, Anemia, Syncope, NSTEMI, CHF History of Present Illness: This is a frail elderly 78-year-old male who came into the hospital for further evaluation on 08/22/2018. He is currently being managed in the intensive care setting, intubated and critically ill. According to the record patient had syncopal episodes x2 with some fatigue and lethargy noted in the emergency room. Patient was also noted to be on Eliquis for history of atrial fibrillation. Patient had dark melena stool x1 since admission. NG tube was placed and coffee-ground emesis is also noted current hemoglobin 7.3 and patient has received 1 unit of packed RBCs so far. WBC count 13.5, PT/INR 1.7, bilirubin 1.2, AST 464, ALT 272, alkaline phosphatase normal at 64. Also noted BNP 4218 as well as positive troponin. Patient had left and right pleural effusions and greater than a liter of bloody pleural fluid was drawn after being transitioned to the intensive care. Chest CT shows nodular areas in the upper lung which could represent infection, inflammation, or malignancy. Patient is sinus rhythm and receiving Levophed for probable sepsis and cardiogenic shock. Currently patient's being managed on Protonix drip. Gastroenterology was called for GI bleed, symptomatic anemia, and melena stools. Most of the information is being gathered from the nurses and the record there is no family present and patient is unable to give any information at this time. <Nery Angulo - Last Filed: 08/22/18 16:51> Review of Systems All other systems reviewed negative except as stated in HPI <Nery Angulo - Last Filed: 08/22/18 16:51> PMFSH - History History Provided By: Patient - Medical History Medical History: Medical History (Last Updated 08/22/18 @ 09:49 by Evelin Vasquez) A-fib CHF (congestive heart failure) COPD (chronic obstructive pulmonary disease) Chest pain HTN (hypertension) Heart attack Lung mass - Surgical History Surgical History: Surgical History (Last Updated 08/22/18 @ 16:27 by RUSSEL Amaral) History of cardiac cath - Family History Family History: Family History (Last Updated 08/22/18 @ 16:28 by RUSSEL Amaral) Brother H/O tongue cancer - Tobacco History Tobacco Use In Past 30 Days: Yes Smoking Status: Current some day smoker Tobacco Type: Cigarettes - Alcohol History How Often Do You Have a Drink Containing Alcohol: 2 to 3 times a week (until 2017) - Substance Use History Substance History: No History of Abuse - Travel History Recent Travel in the [place] Within the Last 8 Weeks: No Recent Travel Out of the Country Within the Last 8 Weeks: No - Immunization History Tetanus Immunization: Unsure Hx Influenza Vaccine This Season: Yes <Nery Angulo - Last Filed: 08/22/18 16:51> - Medical History Medical History: Medical History (Last Updated 08/22/18 @ 09:49 by Evelin Vasquez) A-fib CHF (congestive heart failure) COPD (chronic obstructive pulmonary disease) Chest pain HTN (hypertension) Heart attack Lung mass - Surgical History Surgical History: Surgical History (Last Updated 08/22/18 @ 16:27 by RUSSEL Amaral) History of cardiac cath - Family History Family History: Family History (Last Updated 08/22/18 @ 16:28 by RUSSEL Amaral) Brother H/O tongue cancer <Low Ibanez - Last Filed: 08/22/18 17:10> Medications and Allergies Active Medications: Active Medications Albuterol (Duoneb Neb (Prn)) 1 ampul NEB Q4HR NEB PRN PRN Reason: SHORTNESS OF BREATH Albuterol (Duoneb Neb (James)) 1 ampul NEB Q6HR NEB JAMES Aspirin (Aspirin Chew) 81 mg PO DAILY JAMES Chlorhexidine Gluconate (Chlorhexidine 2% Cloth) 3 pack TOPICAL DAILY@0400 JAMES Stop: 08/28/18 03:59 Chlorhexidine Gluconate (Chlorhexidine 2% Cloth) 3 pack TOPICAL DAILY@0400 PRN PRN Reason: Extra cloth needed Stop: 08/28/18 03:59 Chlorhexidine Gluconate (Peridex 0.12% Oral Kit) 15 ml OROPHARYNG BID@0800, 2000 JAMES Famotidine (Pepcid Pf Inj) 20 mg IV.PUSH Q12HR JAMES Furosemide (Lasix Inj) 40 mg IV.PUSH DAILY JAMES Vancomycin/Sodium Chloride (Vancomycin Inj) 1 gm in 200 mls @ 200 mls/hr IV.SIG STOREROOM KEEPER JAMES Fentanyl (Fentanyl 10 Mcg/Ml Premix Drip) 2,500 mcg in 250 mls @ 5 mls/hr IV.SIG TITRATE PRN; Protocol PRN Reason: Per Protocol Midazolam HCl (Versed Inj) 50 mg in 50 mls @ 2 mls/hr IV.CONT TITRATE PRN; Protocol PRN Reason: Per Protocol Last Admin: 08/22/18 12:43 Dose: 5 mg/hr, 5 mls/hr Pantoprazole Sodium 80 mg/ (Sodium Chloride) 100 mls @ 10 mls/hr IV.CONT CONT JAMES Stop: 08/24/18 14:59 Norepinephrine Bitartrate (Levophed-Dextrose 4 Mg/250 Ml Drip) 4 mg in 250 mls @ 7.5 mls/hr IV.SIG TITRATE PRN; Protocol PRN Reason: Per Protocol Last Titration: 08/22/18 13:49 Dose: 12 mcg/min, 45 mls/hr Milrinone Lactate 20 mg/ (Sodium Chloride) 100 mls @ 0 mls/hr IV.CONT .Q0M JAMES ; Protocol Albumin Human (Flexbumin 25% Inj) 100 mls @ 60 mls/hr IV.SIG Q12H JAMES Sodium Bicarbonate 150 meq/ (Sterile Water) 1,000 mls @ 100 mls/hr IV.CONT .Q10H JAMES Piperacillin/Tazobactam/Dextrose (Zosyn 3.375 Gm Premix) 50 mls @ 100 mls/hr IV.SIG Q8H JAMES Azithromycin 500 mg/ Sodium (Chloride) 250 mls @ 250 mls/hr IV.SIG Q24H JAMES Magnesium Sulfate 4 gm/ Sodium (Chloride) 100 mls @ 50 mls/hr IV.SIG UNSCH PRN PRN Reason: For Magnesium 0.9 - 1.1 mg/dL Magnesium Sulfate 2 gm/ Sodium (Chloride) 100 mls @ 50 mls/hr IV.SIG UNSCH PRN PRN Reason: For Magnesium 1.2 - 1.6 mg/dL Potassium Chloride (Kcl 40 Meq Premix Inj) 40 meq in 100 mls @ 25 mls/hr IV.SIG Q2H PRN PRN Reason: For Potassium 2.8 - 3.2 mEq/L Potassium Chloride (Kcl 20 Meq Premix Inj) 20 meq in 100 mls @ 50 mls/hr IV.SIG Q2H PRN PRN Reason: For Potassium 3.3 - 3.5 mEq/L Potassium Chloride (Kcl 40 Meq Premix Inj) 40 meq in 100 mls @ 25 mls/hr IV.SIG UNSCH PRN PRN Reason: For Potassium 3.3 - 3.5 mEq/L Potassium Chloride (Kcl 20 Meq Premix Inj) 20 meq in 100 mls @ 50 mls/hr IV.SIG Q2H PRN PRN Reason: For Potassium 2.8 - 3.2 mEq/L Potassium Phosphate 30 mmol/ (Sodium Chloride) 260 mls @ 42 mls/hr IV.SIG UNSCH PRN PRN Reason: SEE LABEL COMMENTS Sodium Phosphate 30 mmol/ (Sodium Chloride) 260 mls @ 42 mls/hr IV.SIG UNSCH PRN PRN Reason: For Phosphorus < 2.5 mg/dL Magnesium Oxide (Mag-Ox) 800 mg PO UNSCH PRN PRN Reason: For Magnesium 1.2 - 1.6 mg/dL Miscellaneous Medication () 1 each OROPHARYNG 0000,0400,1200,1600 [facility] Last Admin: 08/22/18 16:03 Dose: Not Given Morphine Sulfate (Morphine Inj) 2 mg IV.PUSH Q2H PRN PRN Reason: PAIN SCALE 6 TO 10 Potassium Bicarb/Potassium Chloride (K-Lyte Cl Eff) 50 meq PO UNSCH PRN PRN Reason: For Potassium 3.3 - 3.5 mEq/L Potassium Phosphate (K-Phos Original) 2,000 mg PO Q4H PRN PRN Reason: Phosphorus Less Than 2.5 mg/dL Potassium Phosphate (K-Phos Original) 2,000 mg PO UNSCH PRN PRN Reason: SEE LABEL COMMENTS <Nery Angulo - Last Filed: 08/22/18 16:51> Active Medications: Active Medications Albuterol (Duoneb Neb (Prn)) 1 ampul NEB Q4HR NEB PRN PRN Reason: SHORTNESS OF BREATH Albuterol (Duoneb Neb (James)) 1 ampul NEB Q6HR NEB [facility] Aspirin (Aspirin Chew) 81 mg PO DAILY [facility] Chlorhexidine Gluconate (Chlorhexidine 2% Cloth) 3 pack TOPICAL DAILY@0400 [facility] Stop: 08/28/18 03:59 Chlorhexidine Gluconate (Chlorhexidine 2% Cloth) 3 pack TOPICAL DAILY@0400 PRN PRN Reason: Extra cloth needed Stop: 08/28/18 03:59 Chlorhexidine Gluconate (Peridex 0.12% Oral Kit) 15 ml OROPHARYNG BID@0800, 2000 [facility] Famotidine (Pepcid Pf Inj) 20 mg IV.PUSH Q12HR JAMES Furosemide (Lasix Inj) 40 mg IV.PUSH DAILY [facility] Last Admin: 08/22/18 16:43 Dose: 40 mg Vancomycin/Sodium Chloride (Vancomycin Inj) 1 gm in 200 mls @ 200 mls/hr IV.SIG STOREROOM KEEPER [facility] Fentanyl (Fentanyl 10 Mcg/Ml Premix Drip) 2,500 mcg in 250 mls @ 5 mls/hr IV.SIG TITRATE PRN; Protocol PRN Reason: Per Protocol Midazolam HCl (Versed Inj) 50 mg in 50 mls @ 2 mls/hr IV.CONT TITRATE PRN; Protocol PRN Reason: Per Protocol Last Admin: 08/22/18 16:42 Dose: 5 mg/hr, 5 mls/hr Pantoprazole Sodium 80 mg/ (Sodium Chloride) 100 mls @ 10 mls/hr IV.CONT CONT JAMES Stop: 08/24/18 14:59 Last Admin: 08/22/18 16:40 Dose: 10 mls/hr Norepinephrine Bitartrate (Levophed-Dextrose 4 Mg/250 Ml Drip) 4 mg in 250 mls @ 7.5 mls/hr IV.SIG TITRATE PRN; Protocol PRN Reason: Per Protocol Last Admin: 08/22/18 16:41 Dose: 12 mcg/min, 45 mls/hr Milrinone Lactate 20 mg/ (Sodium Chloride) 100 mls @ 0 mls/hr IV.CONT .Q0M JAMES ; Protocol Albumin Human (Flexbumin 25% Inj) 100 mls @ 60 mls/hr IV.SIG Q12H [facility] Last Admin: 08/22/18 16:37 Dose: 60 mls/hr Sodium Bicarbonate 150 meq/ (Sterile Water) 1,000 mls @ 100 mls/hr IV.CONT .Q10H [facility] Last Admin: 08/22/18 16:37 Dose: 100 mls/hr Piperacillin/Tazobactam/Dextrose (Zosyn 3.375 Gm Premix) 50 mls @ 100 mls/hr IV.SIG Q8H [facility] Last Admin: 08/22/18 16:40 Dose: 100 mls/hr Azithromycin 500 mg/ Sodium (Chloride) 250 mls @ 250 mls/hr IV.SIG Q24H [facility] Last Admin: 08/22/18 16:45 Dose: 250 mls/hr Magnesium Sulfate 4 gm/ Sodium (Chloride) 100 mls @ 50 mls/hr IV.SIG UNSCH PRN PRN Reason: For Magnesium 0.9 - 1.1 mg/dL Magnesium Sulfate 2 gm/ Sodium (Chloride) 100 mls @ 50 mls/hr IV.SIG UNSCH PRN PRN Reason: For Magnesium 1.2 - 1.6 mg/dL Potassium Chloride (Kcl 40 Meq Premix Inj) 40 meq in 100 mls @ 25 mls/hr IV.SIG Q2H PRN PRN Reason: For Potassium 2.8 - 3.2 mEq/L Potassium Chloride (Kcl 20 Meq Premix Inj) 20 meq in 100 mls @ 50 mls/hr IV.SIG Q2H PRN PRN Reason: For Potassium 3.3 - 3.5 mEq/L Potassium Chloride (Kcl 40 Meq Premix Inj) 40 meq in 100 mls @ 25 mls/hr IV.SIG UNSCH PRN PRN Reason: For Potassium 3.3 - 3.5 mEq/L Potassium Chloride (Kcl 20 Meq Premix Inj) 20 meq in 100 mls @ 50 mls/hr IV.SIG Q2H PRN PRN Reason: For Potassium 2.8 - 3.2 mEq/L Potassium Phosphate 30 mmol/ (Sodium Chloride) 260 mls @ 42 mls/hr IV.SIG UNSCH PRN PRN Reason: SEE LABEL COMMENTS Sodium Phosphate 30 mmol/ (Sodium Chloride) 260 mls @ 42 mls/hr IV.SIG UNSCH PRN PRN Reason: For Phosphorus < 2.5 mg/dL Magnesium Oxide (Mag-Ox) 800 mg PO UNSCH PRN PRN Reason: For Magnesium 1.2 - 1.6 mg/dL Miscellaneous Medication () 1 each OROPHARYNG 0000,0400,1200,1600 [facility] Last Admin: 08/22/18 17:05 Dose: Not Given Morphine Sulfate (Morphine Inj) 2 mg IV.PUSH Q2H PRN PRN Reason: PAIN SCALE 6 TO 10 Potassium Bicarb/Potassium Chloride (K-Lyte Cl Eff) 50 meq PO UNSCH PRN PRN Reason: For Potassium 3.3 - 3.5 mEq/L Potassium Phosphate (K-Phos Original) 2,000 mg PO Q4H PRN PRN Reason: Phosphorus Less Than 2.5 mg/dL Potassium Phosphate (K-Phos Original) 2,000 mg PO UNSCH PRN PRN Reason: SEE LABEL COMMENTS <Low Ibanez E - Last Filed: 08/22/18 17:10> Allergies Allergy/AdvReac Type Severity Reaction Status Date / Time heparin Allergy Hives Verified 08/22/18 09:32 Home Medications Medication Instructions Recorded Confirmed Type apixaban [Eliquis] 5 mg PO BID 08/22/18 08/22/18 History aspirin 325 mg PO DAILY 08/22/18 08/22/18 History carvedilol [Coreg] 3.125 mg PO BID 08/22/18 08/22/18 History formoterol fumarate 2 ml INHALATION BID 08/22/18 08/22/18 History furosemide [Lasix] 20 mg PO BID 08/22/18 08/22/18 History ipratropium-albuterol 3 ml INHALATION Q6HR PRN 08/22/18 08/22/18 History lisinopril 2.5 mg PO DAILY 08/22/18 08/22/18 History potassium chloride 10 meq PO BID 08/22/18 08/22/18 History Exam Vital signs: Vital Signs 08/22/18 09:32 08/22/18 09:43 08/22/18 10:29 Temperature 97.9 F 97.4 F L Pulse Rate 96 H 93 H Respiratory Rate 17 22 Blood Pressure 79/52 L 86/50 L Pulse Oximetry 100 08/22/18 11:17 08/22/18 12:04 08/22/18 13:00 Temperature Pulse Rate 91 H 94 H 84 Respiratory Rate 27 H 16 Blood Pressure 92/53 L 72/50 L 100/62 Pulse Oximetry 100 100 08/22/18 13:53 08/22/18 14:04 08/22/18 15:03 Temperature Pulse Rate 82 Respiratory Rate 16 Blood Pressure 97/54 L Pulse Oximetry 100 100 98 08/22/18 15:52 Temperature 96.3 F L Pulse Rate 80 Respiratory Rate Blood Pressure Pulse Oximetry Intake & Output 08/21/18 08/22/18 08/22/18 18:59 06:59 18:59 Intake Total 600 / 600 Balance 600 / 600 Weight 67.5 kg Intake: IV 600 / 600 Maxipime Inj 1,000 MG In NS Inj 100 / 100 100 ML @ 200 mls/hr IV.SIG ONCE ONE Rx#:[id number] NS Inj 500 ML @ Wide Open IV. 500 / 500 SIG BOLUS JAMES Rx#:[id number] Other: Weight On Admission 67.5 kg - Constitutional no acute distress (Thin frail skin turgor pale color, cool extremities pallor and cyanosis lower extremities), thin, cachectic, obtunded - Routine HEENT Exam ENT: Present: mucous membranes dry (Orally intubated, NG tube with coffee- ground emesis) - Routine Respiratory Exam Present: patient mechanically ventilated, decreased breath sounds, rales, rhonchi - Routine Cardiovascular Exam Present: S1, S2 (Sinus rhythm heart rate 79) - Routine Abdominal Exam Present: soft (Hypoactive minimal bowel sounds, soft,) - Routine Skin Exam Present: dry, pallor <Nery Angulo M - Last Filed: 08/22/18 16:51> Vital signs: Vital Signs 08/22/18 09:32 08/22/18 09:43 08/22/18 10:29 Temperature 97.9 F 97.4 F L Pulse Rate 96 H 93 H Respiratory Rate 17 22 Blood Pressure 79/52 L 86/50 L Pulse Oximetry 100 08/22/18 11:17 08/22/18 12:04 08/22/18 13:00 Temperature Pulse Rate 91 H 94 H 84 Respiratory Rate 27 H 16 Blood Pressure 92/53 L 72/50 L 100/62 Pulse Oximetry 100 100 08/22/18 13:53 08/22/18 14:04 08/22/18 15:03 Temperature Pulse Rate 82 Respiratory Rate 16 Blood Pressure 97/54 L Pulse Oximetry 100 100 98 08/22/18 15:52 Temperature 96.3 F L Pulse Rate 80 Respiratory Rate Blood Pressure Pulse Oximetry Intake & Output 08/21/18 08/22/18 08/22/18 18:59 06:59 18:59 Intake Total 900 / 900 Balance 900 / 900 Weight 67.5 kg Intake: IV 900 / 900 Versed Inj 50 mg In 50 ml @ 2 50 / 50 MG/HR 2 mls/hr IV.CONT TITRATE PRN Rx#:[id number] Maxipime Inj 1,000 MG In NS Inj 100 / 100 100 ML @ 200 mls/hr IV.SIG ONCE ONE Rx#:[id number] Levophed-Dextrose 4 mg/250 ml 250 / 250 Drip 4 mg In 250 ml @ 2 MCG/MIN 7.5 mls/hr IV.SIG TITRATE PRN Rx#:[id number] NS Inj 500 ML @ Wide Open IV. 500 / 500 SIG BOLUS JAMES Rx#:[id number] Other: Weight On Admission 67.5 kg <Low Ibanez E - Last Filed: 08/22/18 17:10> Results - Labs CBC & Chem 7: 08/22/18 10:08 08/22/18 10:08 Labs: Laboratory Results - last 24 hr 08/22/18 08/22/18 08/22/18 10:08 10:08 10:08 WBC 13.5 H RBC 2.43 L Hgb 7.3 L Hct 22.2 L MCV 91.3 MCH 30.1 MCHC 32.9 RDW 17.3 H Plt Count 199 MPV 10.3 Neut % (Auto) 80.3 H Lymph % (Auto) 12.2 Bennett % (Auto) 7.2 Eos % (Auto) 0.0 Baso % (Auto) 0.3 Neut # (Auto) 10.9 H Lymph # (Auto) 1.6 Bennett # (Auto) 1.0 H Eos # (Auto) 0.0 Baso # (Auto) 0.0 WBC Differential . Differential Comment Auto diff final PT 16.7 H INR 1.7 APTT 32.0 H Puncture Site Patient Temperature O2 Saturation ABG pH ABG pCO2 ABG pO2 ABG HCO3 ABG O2 Content ABG Base Excess ABG Methemoglobin Cristopher Test Hemoglobin Carboxyhemoglobin O2 Delivery Device Vent Setting Inspired O2 Critical Value Sodium 138 Potassium 5.3 H Chloride 98 Carbon Dioxide 19.2 L Anion Gap 21 H BUN 31 H Creatinine 1.92 H Estimated GFR 34 L POC Glucose Random Glucose 181 H Lactic Acid Calcium 7.8 L Total Bilirubin 1.2 H AST 464 H ALT 272 H Alkaline Phosphatase 64 Total Creatine Kinase CK-MB (CK-2) CK-MB (CK-2) % Troponin I 5.46 H* B-Natriuretic Peptide Total Protein 5.7 L Albumin 2.3 L Urine Color Urine Clarity Urine pH Ur Specific Eckerty Urine Protein Urine Glucose (UA) Urine Ketones Urine Occult Blood Urine Nitrate Urine Bilirubin Urine Urobilinogen Ur Leukocyte Esterase Urine RBC Urine WBC Ur Squamous Epith Cells Urine Mucus Ur Microscopic Review Blood Type Antibody Screen MTS Gel Crossmatch Blood Bank Comment 08/22/18 08/22/18 08/22/18 10:08 11:12 11:34 WBC RBC Hgb Hct MCV MCH MCHC RDW Plt Count MPV Neut % (Auto) Lymph % (Auto) Bennett % (Auto) Eos % (Auto) Baso % (Auto) Neut # (Auto) Lymph # (Auto) Bennett # (Auto) Eos # (Auto) Baso # (Auto) WBC Differential Differential Comment PT INR APTT Puncture Site Patient Temperature O2 Saturation ABG pH ABG pCO2 ABG pO2 ABG HCO3 ABG O2 Content ABG Base Excess ABG Methemoglobin Cristopher Test Hemoglobin Carboxyhemoglobin O2 Delivery Device Vent Setting Inspired O2 Critical Value Sodium Potassium Chloride Carbon Dioxide Anion Gap BUN Creatinine Estimated GFR POC Glucose Random Glucose Lactic Acid Calcium Total Bilirubin AST ALT Alkaline Phosphatase Total Creatine Kinase CK-MB (CK-2) CK-MB (CK-2) % Troponin I B-Natriuretic Peptide 4218 H Total Protein Albumin Urine Color Yellow Urine Clarity Clear Urine pH 7.0 Ur Specific Eckerty 1.009 Urine Protein Negative Urine Glucose (UA) Negative Urine Ketones Negative Urine Occult Blood Small H Urine Nitrate Negative Urine Bilirubin Negative Urine Urobilinogen Less than 2 Ur Leukocyte Esterase Negative Urine RBC 1 Urine WBC 1 Ur Squamous Epith Cells 1 Urine Mucus Few H Ur Microscopic Review Not Reportable Blood Type O Negative Antibody Screen Negative MTS Gel Crossmatch See Detail Blood Bank Comment 08/22/18 08/22/18 08/22/18 11:56 12:38 13:18 WBC RBC Hgb Hct MCV MCH MCHC RDW Plt Count MPV Neut % (Auto) Lymph % (Auto) Bennett % (Auto) Eos % (Auto) Baso % (Auto) Neut # (Auto) Lymph # (Auto) Bennett # (Auto) Eos # (Auto) Baso # (Auto) WBC Differential Differential Comment PT INR APTT Puncture Site Left radial Patient Temperature 98.6 O2 Saturation 98 ABG pH 7.28 L* ABG pCO2 24 L* ABG pO2 393 H ABG HCO3 11 L* ABG O2 Content 11.2 L ABG Base Excess -14.6 L ABG Methemoglobin 0.6 Cristopher Test Present Hemoglobin 7.4 L* Carboxyhemoglobin 2.0 O2 Delivery Device Vent Vent Setting [id number] Inspired O2 100 Critical Value Yes Sodium Potassium Chloride Carbon Dioxide Anion Gap BUN Creatinine Estimated GFR POC Glucose 163 H Random Glucose Lactic Acid Calcium Total Bilirubin AST ALT Alkaline Phosphatase Total Creatine Kinase 377 H CK-MB (CK-2) 58.6 H CK-MB (CK-2) % 15.5 H* Troponin I 8.89 H* B-Natriuretic Peptide Total Protein Albumin Urine Color Urine Clarity Urine pH Ur Specific Eckerty Urine Protein Urine Glucose (UA) Urine Ketones Urine Occult Blood Urine Nitrate Urine Bilirubin Urine Urobilinogen Ur Leukocyte Esterase Urine RBC Urine WBC Ur Squamous Epith Cells Urine Mucus Ur Microscopic Review Blood Type Antibody Screen [employer] Blood Bank Comment 08/22/18 08/22/18 13:29 15:06 WBC RBC Hgb Hct MCV MCH MCHC RDW Plt Count MPV Neut % (Auto) Lymph % (Auto) Bennett % (Auto) Eos % (Auto) Baso % (Auto) Neut # (Auto) Lymph # (Auto) Bennett # (Auto) Eos # (Auto) Baso # (Auto) WBC Differential Differential Comment PT INR APTT Puncture Site Patient Temperature O2 Saturation ABG pH ABG pCO2 ABG pO2 ABG HCO3 ABG O2 Content ABG Base Excess ABG Methemoglobin Cristopher Test Hemoglobin Carboxyhemoglobin O2 Delivery Device Vent Setting Inspired O2 Critical Value Sodium Potassium Chloride Carbon Dioxide Anion Gap BUN Creatinine Estimated GFR POC Glucose Random Glucose Lactic Acid 15.0 H* Calcium Total Bilirubin AST ALT Alkaline Phosphatase Total Creatine Kinase CK-MB (CK-2) CK-MB (CK-2) % Troponin I B-Natriuretic Peptide Total Protein Albumin Urine Color Urine Clarity Urine pH Ur Specific Eckerty Urine Protein Urine Glucose (UA) Urine Ketones Urine Occult Blood Urine Nitrate Urine Bilirubin Urine Urobilinogen Ur Leukocyte Esterase Urine RBC Urine WBC Ur Squamous Epith Cells Urine Mucus Ur Microscopic Review Blood Type Antibody Screen [employer] Blood Bank Comment - Imaging Impressions Chest X-Ray 08/22/18 00:00 CONCLUSION: Support apparatus in good position. Head CT 08/22/18 10:03 CONCLUSION: 1. Negative for an acute process . Chest X-Ray 08/22/18 10:07 CONCLUSION: 1. Diffuse interstitial infiltrates consistent with moderate pulmonary edema versus pneumonia. Clinical correlation is recommended. 2. Cardiomegaly. 3. Small right pleural effusion. 4. Degenerative changes involving the shoulders bilaterally. Chest CT 08/22/18 13:31 CONCLUSION: 1. Moderate right and small left pleural effusion with associated passive atelectasis. 2. Scattered areas of consolidation throughout both lungs including areas of nodularity within both upper lobes. Infectious or inflammatory processes are favored. I cannot completely exclude an underlying malignancy and therefore a follow-up CT of the thorax is suggested following resolution of the acute symptoms. 3. Severe coronary artery and aortic atherosclerotic calcifications. Abdomen/Pelvis CT 08/22/18 14:12 CONCLUSION: 1. Moderate-sized bilateral pleural effusions. 2. 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 3. Bibasilar alveolar consolidations consistent with compressive atelectasis/ or infiltrates. 4. Diffuse urinary bladder wall thickening suggesting cystitis. 5. Uncomplicated colonic diverticulosis. 6. Multiple stable bilateral renal cysts. 7. Diffuse calcifications throughout the pancreas consistent with chronic calcific pancreatitis. 8. Coronary artery calcifications. 9. Degenerative changes throughout the thoracolumbar spine. <Nery Angulo - Last Filed: 08/22/18 16:51> - Labs CBC & Chem 7: 08/22/18 10:08 08/22/18 10:08 Labs: Laboratory Results - last 24 hr 08/22/18 08/22/18 08/22/18 10:08 10:08 10:08 WBC 13.5 H RBC 2.43 L Hgb 7.3 L Hct 22.2 L MCV 91.3 MCH 30.1 MCHC 32.9 RDW 17.3 H Plt Count 199 MPV 10.3 Neut % (Auto) 80.3 H Lymph % (Auto) 12.2 Bennett % (Auto) 7.2 Eos % (Auto) 0.0 Baso % (Auto) 0.3 Neut # (Auto) 10.9 H Lymph # (Auto) 1.6 Bennett # (Auto) 1.0 H Eos # (Auto) 0.0 Baso # (Auto) 0.0 WBC Differential . Differential Comment Auto diff final PT 16.7 H INR 1.7 APTT 32.0 H Puncture Site Patient Temperature O2 Saturation ABG pH ABG pCO2 ABG pO2 ABG HCO3 ABG O2 Content ABG Base Excess ABG Methemoglobin Cristopher Test Hemoglobin Carboxyhemoglobin O2 Delivery Device Vent Setting Inspired O2 Critical Value Sodium 138 Potassium 5.3 H Chloride 98 Carbon Dioxide 19.2 L Anion Gap 21 H BUN 31 H Creatinine 1.92 H Estimated GFR 34 L POC Glucose Random Glucose 181 H Lactic Acid Calcium 7.8 L Total Bilirubin 1.2 H AST 464 H ALT 272 H Alkaline Phosphatase 64 Total Creatine Kinase CK-MB (CK-2) CK-MB (CK-2) % Troponin I 5.46 H* B-Natriuretic Peptide Total Protein 5.7 L Albumin 2.3 L Urine Color Urine Clarity Urine pH Ur Specific Eckerty Urine Protein Urine Glucose (UA) Urine Ketones Urine Occult Blood Urine Nitrate Urine Bilirubin Urine Urobilinogen Ur Leukocyte Esterase Urine RBC Urine WBC Ur Squamous Epith Cells Urine Mucus Ur Microscopic Review Blood Type Antibody Screen MTS Gel Crossmatch Blood Bank Comment 08/22/18 08/22/18 08/22/18 10:08 11:12 11:34 WBC RBC Hgb Hct MCV MCH MCHC RDW Plt Count MPV Neut % (Auto) Lymph % (Auto) Bennett % (Auto) Eos % (Auto) Baso % (Auto) Neut # (Auto) Lymph # (Auto) Bennett # (Auto) Eos # (Auto) Baso # (Auto) WBC Differential Differential Comment PT INR APTT Puncture Site Patient Temperature O2 Saturation ABG pH ABG pCO2 ABG pO2 ABG HCO3 ABG O2 Content ABG Base Excess ABG Methemoglobin Cristopher Test Hemoglobin Carboxyhemoglobin O2 Delivery Device Vent Setting Inspired O2 Critical Value Sodium Potassium Chloride Carbon Dioxide Anion Gap BUN Creatinine Estimated GFR POC Glucose Random Glucose Lactic Acid Calcium Total Bilirubin AST ALT Alkaline Phosphatase Total Creatine Kinase CK-MB (CK-2) CK-MB (CK-2) % Troponin I B-Natriuretic Peptide 4218 H Total Protein Albumin Urine Color Yellow Urine Clarity Clear Urine pH 7.0 Ur Specific Eckerty 1.009 Urine Protein Negative Urine Glucose (UA) Negative Urine Ketones Negative Urine Occult Blood Small H Urine Nitrate Negative Urine Bilirubin Negative Urine Urobilinogen Less than 2 Ur Leukocyte Esterase Negative Urine RBC 1 Urine WBC 1 Ur Squamous Epith Cells 1 Urine Mucus Few H Ur Microscopic Review Not Reportable Blood Type O Negative Antibody Screen Negative MTS Gel Crossmatch See Detail Blood Bank Comment 08/22/18 08/22/18 08/22/18 11:56 12:38 13:18 WBC RBC Hgb Hct MCV MCH MCHC RDW Plt Count MPV Neut % (Auto) Lymph % (Auto) Bennett % (Auto) Eos % (Auto) Baso % (Auto) Neut # (Auto) Lymph # (Auto) Bennett # (Auto) Eos # (Auto) Baso # (Auto) WBC Differential Differential Comment PT INR APTT Puncture Site Left radial Patient Temperature 98.6 O2 Saturation 98 ABG pH 7.28 L* ABG pCO2 24 L* ABG pO2 393 H ABG HCO3 11 L* ABG O2 Content 11.2 L ABG Base Excess -14.6 L ABG Methemoglobin 0.6 Cristopher Test Present Hemoglobin 7.4 L* Carboxyhemoglobin 2.0 O2 Delivery Device Vent Vent Setting [id number]/500/[id number] Inspired O2 100 Critical Value Yes Sodium Potassium Chloride Carbon Dioxide Anion Gap BUN Creatinine Estimated GFR POC Glucose 163 H Random Glucose Lactic Acid Calcium Total Bilirubin AST ALT Alkaline Phosphatase Total Creatine Kinase 377 H CK-MB (CK-2) 58.6 H CK-MB (CK-2) % 15.5 H* Troponin I 8.89 H* B-Natriuretic Peptide Total Protein Albumin Urine Color Urine Clarity Urine pH Ur Specific Eckerty Urine Protein Urine Glucose (UA) Urine Ketones Urine Occult Blood Urine Nitrate Urine Bilirubin Urine Urobilinogen Ur Leukocyte Esterase Urine RBC Urine WBC Ur Squamous Epith Cells Urine Mucus Ur Microscopic Review Blood Type Antibody Screen MTS Gel Crossmatch Blood Bank Comment 08/22/18 08/22/18 13:29 15:06 WBC RBC Hgb Hct MCV MCH MCHC RDW Plt Count MPV Neut % (Auto) Lymph % (Auto) Bennett % (Auto) Eos % (Auto) Baso % (Auto) Neut # (Auto) Lymph # (Auto) Bennett # (Auto) Eos # (Auto) Baso # (Auto) WBC Differential Differential Comment PT INR APTT Puncture Site Patient Temperature O2 Saturation ABG pH ABG pCO2 ABG pO2 ABG HCO3 ABG O2 Content ABG Base Excess ABG Methemoglobin Cristopher Test Hemoglobin Carboxyhemoglobin O2 Delivery Device Vent Setting Inspired O2 Critical Value Sodium Potassium Chloride Carbon Dioxide Anion Gap BUN Creatinine Estimated GFR POC Glucose Random Glucose Lactic Acid 15.0 H* Calcium Total Bilirubin AST ALT Alkaline Phosphatase Total Creatine Kinase CK-MB (CK-2) CK-MB (CK-2) % Troponin I B-Natriuretic Peptide Total Protein Albumin Urine Color Urine Clarity Urine pH Ur Specific Eckerty Urine Protein Urine Glucose (UA) Urine Ketones Urine Occult Blood Urine Nitrate Urine Bilirubin Urine Urobilinogen Ur Leukocyte Esterase Urine RBC Urine WBC Ur Squamous Epith Cells Urine Mucus Ur Microscopic Review Blood Type Antibody Screen MTS Gel Crossmatch Blood Bank Comment - Imaging Impressions Chest X-Ray 08/22/18 00:00 CONCLUSION: Support apparatus in good position. Chest X-Ray 08/22/18 00:00 CONCLUSION: Bibasilar densities. No pneumothorax. Head CT 08/22/18 10:03 CONCLUSION: 1. Negative for an acute process . Chest X-Ray 08/22/18 10:07 CONCLUSION: 1. Diffuse interstitial infiltrates consistent with moderate pulmonary edema versus pneumonia. Clinical correlation is recommended. 2. Cardiomegaly. 3. Small right pleural effusion. 4. Degenerative changes involving the shoulders bilaterally. Chest CT 08/22/18 13:31 CONCLUSION: 1. Moderate right and small left pleural effusion with associated passive atelectasis. 2. Scattered areas of consolidation throughout both lungs including areas of nodularity within both upper lobes. Infectious or inflammatory processes are favored. I cannot completely exclude an underlying malignancy and therefore a follow-up CT of the thorax is suggested following resolution of the acute symptoms. 3. Severe coronary artery and aortic atherosclerotic calcifications. Abdomen/Pelvis CT 08/22/18 14:12 CONCLUSION: 1. Moderate-sized bilateral pleural effusions. 2. 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 3. Bibasilar alveolar consolidations consistent with compressive atelectasis/ or infiltrates. 4. Diffuse urinary bladder wall thickening suggesting cystitis. 5. Uncomplicated colonic diverticulosis. 6. Multiple stable bilateral renal cysts. 7. Diffuse calcifications throughout the pancreas consistent with chronic calcific pancreatitis. 8. Coronary artery calcifications. 9. Degenerative changes throughout the thoracolumbar spine. <Low Ibanez E - Last Filed: 08/22/18 17:10> Assessment and Plan - Plan frail elderly 78-year-old male who came into the hospital for further evaluation on 08/22/2018. He is currently being managed in the intensive care setting, intubated and critically ill. According to the record patient had syncopal episodes x2 with some fatigue and lethargy noted in the emergency room. Patient also has had dark melena stool x1 since admission. NG tube was placed and coffee-ground emesis is also noted current hemoglobin 7.3 and patient has received 1 unit of packed RBCs so far. WBC count 13.5, PT/INR 1.7, bilirubin 1.2, AST 464, ALT 272, alkaline phosphatase normal at 64. Also noted BNP 4218 as well as positive troponin. Patient had left and right pleural effusions and greater than a liter of bloody pleural fluid was drawn after being transitioned to the intensive care. Chest CT shows nodular areas in the upper lung which could represent infection, inflammation, or malignancy. Patient is sinus rhythm and receiving Levophed for probable sepsis and cardiogenic shock. Currently patient's being managed on Protonix drip. Gastroenterology was called for GI bleed, symptomatic anemia, and melena stools. Most of the information is being gathered from the nurses and the record there is no family present and patient is unable to give any information at this time. GI bleed, probable secondary to Eliquis versus inflammation versus ulcer disease Symptomatic anemia, requiring transfusion Coffee-ground emesis, secondary to #1 Melena stools, patient was on Eliquis for history of atrial fib and has history of CHF COPD and coronary artery disease he was currently being managed in the [facility]. Sepsis Cardiogenic shock being managed per assistant toddler teacher, patient currently in the intensive care setting mechanically and intubated Levophed drip, no family present noted to be critically ill CT scan shows possible new lung nodules, could be inflammatory versus malignancy versus infectious Cardiology consult pending BNP 4218, chest CT with right and left pleural effusions, thoracentesis done with bloody serous fluid noted greater than 1 L. Palliative care has been consulted. To the nurse there is a son Plan Diet, n.p.o. NG tube to low intermittent suction Eliquis being held Protonix drip, Monitor labs with special attention to hemoglobin and transfuse as needed Patient is critically ill and appears to be in cardiogenic shock as well as possible sepsis, elevated troponins possible cardiovascular event GI appreciates the consult and will follow with you but due to the critical nature of this patient, patient is not stable enough for any procedures Patient was seen per myself and Dr. Ibaenz, note was written on his behalf <Nery Angulo - Last Filed: 08/22/18 16:51> - Plan Patient seen and examined Agree with above Continue with current supportive care Monitor labs Very poor prognosis Correct coagulopathy Transfuse as needed Case discussed with ICU nurse and physician <Low Ibanez E - Last Filed: 08/22/18 17:10>
--- NOTE | 2018-08-22 16:57 | XR ---
EXAM DATE: 08/22/2018 12:00 AM EDT AGE/SEX: 78 years / Male INDICATIONS: Post right thoracentesis. CLINICAL DATA: This is the patient's subsequent encounter. Patient reports that signs and symptoms h ave been present for 1 day and indicates a pain score of Nonresponsive. MEDICAL/SURGICAL HISTORY: . Chronic obstructive pulmonary disease. Congestive heart failure. Hy pertension. Myocardial infarction. A-fib. . COMPARISON: [facility], CHEST 1V SINGLE AP, 08/22/2018. . FINDINGS: A single AP view of the chest demonstrates bibasilar densities. No pneumothorax. Endotracheal tube an d right subclavian central line stable position. Nasogastric tube with tip below the inferior margin of image CONCLUSION: Bibasilar densities. No pneumothorax. Electronically signed by: Jose Antonio Quintana MD 08/22/2018 4:55 PM EDT
[2018-08-22] MEDS ORDERED: Albumin Human 25% Inj 100 ML IV.SIG SCH (17:00)
[2018-08-22] MEDS ORDERED: Sodium Bicarbonate 8.4% Inj 150 MEQ in Water for Inj, Sterile 850 ML IV.CONT SCH (17:00)
[2018-08-22] MEDS ORDERED: Azithromycin Inj 500 MG in Sodium Chlor 0.9% Inj 250 ML IV.SIG SCH (17:00)
[2018-08-22 17:16] VITALS: BP 111/55; TEMP 96.4
[2018-08-22] MEDS ORDERED: Phenylephrine Inj 40 MG in Sodium Chlor 0.9% Inj 496 ML IV.CONT PRN (17:52)
[2018-08-22 18:00] LABS: Total Protein,Pleural Fluid 1.8 gm/dL
[2018-08-22 18:23] LABS: Lymphocytes,Pleural Fluid 66 %; Mesothelial,Pleural Fluid 19 %; Monocytes,Pleural Fluid 4 %; Neutrophils,Pleural Fluid 10 %
[2018-08-22 18:26] LABS: RBC,Pleural Fluid 7788 /mm3 (0-0)
[2018-08-22] MEDS ORDERED: Morphine Inj 4 MG/ML Vial IV.PUSH ONE (18:49)
[2018-08-22] MEDS ORDERED: Atropine Inj 1 MG/10 ML Syringe IV.PUSH ONE (18:53)
[2018-08-22] MEDS ORDERED: Sodium Bicarbonate 8.4% Inj 50 MEQ/50 ML Syringe IV.CONT ONE (18:53)
[2018-08-22] MEDS ORDERED: DOPamine 800 MG/500 ML Premix 800 MG/500 ML PLAST..BAG IV.CONT ONE (18:53)
[2018-08-22] MEDS ORDERED: Chlorhexidine 0.12% Oral Kit 15 ML UDC OROPHARYNG SCH (20:00)
--- NOTE | 2018-08-22 20:51 | ECG ---
Date Performed: 08/22/2018 Time Performed: 09:33:31 PTAGE: 78 years EKG: Sinus rhythm ST DEVIATION AND MODERATE T-WAVE ABNORMALITY PREVIOUS TRACING : 02/05/2008 10.33 Compared to previous tracing, ST-T changes are new DOCTOR: Luis E Mitchell Interpretating Date/Time 08/22/2018 20:49:48
[2018-08-22] MEDS ORDERED: Famotidine PF Inj 20 MG/2 ML Vial IV.PUSH SCH ×2 (21:00)
[2018-08-22] MEDS ORDERED: Famotidine 20 MG Tablet PO SCH (21:00)
[2018-08-23] MEDS ORDERED: Chlorhexidine Gluconate 2% 1 Pack (2 Cloths) TOPICAL SCH (04:00)
[2018-08-23] MEDS ORDERED: Chlorhexidine Gluconate 2% 1 Pack (2 Cloths) TOPICAL PRN (04:00)
--- NOTE | 2018-08-23 12:48 | P.DN ---
Discharge Sum: Prov - Provider Primary care physician: Noemi Thurman MD Admitting clinician: Lainey Chavira Attending physician on admission: Lainey Chavira Consults: 08/22/18 13:04 Consult to Cardiology Routine Consulting Provider: Blanco Sow Does the patient have a Saddle Cutter who follows them?: No Preferred Woods Laborer:: Plastering Contractor Physician Reason for Consultation: NSTEMI Notified:: Office Spoke with:: lucinda Date Notified:: 08/22/18 Time Notified:: 13:14 Ordering Provider: SPIKE 08/22/18 13:26 Consult to Gastroenterology Routine Consulting Provider: Low Ibanez Reason for Consultation: GIB/melena, anemia Notified:: Office Spoke with:: andres Date Notified:: 08/22/18 Time Notified:: 13:36 Ordering Provider: SPIKE 08/22/18 13:48 HUB Only Consult Order Routine Consulting Provider: Damaris Ocampo 08/22/18 14:19 Consult to Palliative Care Routine Consulting Provider: Nya Solano Reason for Consultation: CHF EF 30% MODS poor prognosis Notified:: Service Spoke with:: elizabeth Date Notified:: 08/22/18 Time Notified:: 14:48 Ordering Provider: SPIKE Discharge Sum: Diag - Admitting Diagnosis (1) Acute respiratory failure Status: Acute (2) Anemia requiring transfusions Status: Acute (3) CHF exacerbation Status: Acute (4) Cardiogenic shock Status: Acute (5) GIB (gastrointestinal bleeding) Status: Acute (6) Lactic acidosis Status: Acute (7) NSTEMI (non-ST elevated myocardial infarction) Status: Acute (8) Septic shock Status: Acute (9) Systolic heart failure Status: Acute (10) Transaminitis Status: Acute (11) COPD (chronic obstructive pulmonary disease) Status: Chronic (12) Chronic atrial fibrillation Status: Chronic (13) Coronary artery disease Status: Chronic (14) Debility Status: Chronic (15) Ischemic cardiomyopathy Status: Chronic (16) Malnutrition Status: Chronic - Diagnosis at Time of (1) Cardiac arrest Diagnosis: Principal (2) Refractory shock Diagnosis: Principal (3) Acute respiratory failure Diagnosis: Principal (4) Anemia requiring transfusions Diagnosis: Principal (5) CHF exacerbation Diagnosis: Principal (6) Cardiogenic shock Diagnosis: Principal (7) GIB (gastrointestinal bleeding) Diagnosis: Principal (8) HCAP (healthcare-associated pneumonia) Diagnosis: Principal (9) Lactic acidosis Diagnosis: Principal (10) NSTEMI (non-ST elevated myocardial infarction) Diagnosis: Principal (11) Septic shock Diagnosis: Principal (12) Systolic heart failure Diagnosis: Principal (13) Transaminitis Diagnosis: Principal (14) COPD (chronic obstructive pulmonary disease) Diagnosis: Secondary (15) Chronic atrial fibrillation Diagnosis: Secondary (16) Coronary artery disease Diagnosis: Secondary (17) Debility Diagnosis: Secondary (18) Ischemic cardiomyopathy Diagnosis: Secondary (19) Malnutrition Diagnosis: Secondary Discharge Sum: Summary - Date and Time Date of admission: 08/22/18 12:20 Date of : 08/23/18 Time of : 18:54 - Summary Details: See hospital course Procedures: Central line placement Ultrasound-guided thoracentesis CPR Brief History: Patient is intubated at this point and all history is obtained from the ED notes and from the ED physician. Apparently patient is a 78 years old male, is a resident of [facility] with past medical history significant for COPD, atrial fibrillation on Eliquis, CHF with an EF of 25-30%, new lung masses (recent biopsy at [facility]), NSTEMI ( catheterization with circumflex, RCA and LAD disease per [facility] records). He was brought in today by EMS from [facility] after two near syncope episode. He was fatigued and lethargic in the emergency department. Appears critically ill, was intubated for airway protection. ER workup showed his white count 13.5, hemoglobin 7.3, INR 1.7. He had black tarry stools in the ED which was guaiac positive. Patient had a BUN 31 creatinine 1.92, ALT AST was elevated 464/272. Also troponin was elevated at 5.42 BNP was 4218. Chest x-ray showed pulmonary vascular congestion and right pleural effusion. I evaluated the patient in the emergency department he was just intubated now under the influence of anesthesia medication. Patient is hypotensive with systolic blood pressure 68, I emergently placed a right subclavian central line and started him on Levophed. Will avoid further fluid resuscitation due to evidence of CHF, BNP more than 4000 and pulmonary vascular congestion on CXR. His troponin was 5 and cardiology had been consulted. Unfortunately due to active GI bleed we cannot anticoagulate or use antiplatelet therapy. Patient has a LifeVest in place we do not have any records of this in this hospital. Echo had been ordered but the previous ejection fraction reported is 25-30%. I also ordered a stat lactic acid which came back at 15. Overall his prognosis appears very poor I will also get palliative care involved early. Received vancomycin and cefepime. CT scan shows consolidation and lung nodules. Continue antibiotics with Zosyn and azithromycin Result Diagrams: 08/22/18 10:08 08/22/18 10:08 Significant Findings: Abnormal Lab Results 08/22/18 08/22/18 08/22/18 11:34 11:34 12:38 Puncture Site Left radial Patient Temperature 98.6 O2 Saturation 98 ABG pH 7.28 L* ABG pCO2 24 L* ABG pO2 393 H ABG HCO3 11 L* ABG O2 Content 11.2 L ABG Base Excess -14.6 L ABG Methemoglobin 0.6 Cristopher Test Present Hemoglobin 7.4 L* Carboxyhemoglobin 2.0 O2 Delivery Device Vent Vent Setting Ac18/500/peep5 Inspired O2 100 Critical Value Yes Lactic Acid Total Creatine Kinase CK-MB (CK-2) CK-MB (CK-2) % Troponin I Pleural pH Pleural RBC Pleural Nuc Cells Pleural Neutrophils Pleural Lymphocytes Pleural Monocytes Pleural Histocytes Pleural Mesothelial Pleural Total Protein Pleural LDH Pleural Glucose Pleural Amylase Blood Type O Negative Antibody Screen Negative MTS Gel Crossmatch See Detail See Detail Blood Bank Comment 08/22/18 08/22/18 08/22/18 13:18 13:29 15:06 Puncture Site Patient Temperature O2 Saturation ABG pH ABG pCO2 ABG pO2 ABG HCO3 ABG O2 Content ABG Base Excess ABG Methemoglobin Cristopher Test Hemoglobin Carboxyhemoglobin O2 Delivery Device Vent Setting Inspired O2 Critical Value Lactic Acid 15.0 H* Total Creatine Kinase 377 H CK-MB (CK-2) 58.6 H CK-MB (CK-2) % 15.5 H* Troponin I 8.89 H* Pleural pH Pleural RBC Pleural Nuc Cells Pleural Neutrophils Pleural Lymphocytes Pleural Monocytes Pleural Histocytes Pleural Mesothelial Pleural Total Protein Pleural LDH Pleural Glucose Pleural Amylase Blood Type Antibody Screen MTS Gel Crossmatch Blood Bank Comment 08/22/18 08/22/18 15:30 15:30 Puncture Site Patient Temperature O2 Saturation ABG pH ABG pCO2 ABG pO2 ABG HCO3 ABG O2 Content ABG Base Excess ABG Methemoglobin Cristopher Test Hemoglobin Carboxyhemoglobin O2 Delivery Device Vent Setting Inspired O2 Critical Value Lactic Acid Total Creatine Kinase CK-MB (CK-2) CK-MB (CK-2) % Troponin I Pleural pH 8.0 Pleural RBC 7788 H Pleural Nuc Cells 488 H Pleural Neutrophils 10 Pleural Lymphocytes 66 Pleural Monocytes 4 Pleural Histocytes 1 Pleural Mesothelial 19 Pleural Total Protein 1.8 Pleural LDH 63 Pleural Glucose 168 Pleural Amylase 53 Blood Type Antibody Screen MTS Gel Crossmatch Blood Bank Comment Imaging: Head CT 08/22/18 10:03 CONCLUSION: 1. Negative for an acute process . Chest X-Ray 08/22/18 10:07 CONCLUSION: 1. Diffuse interstitial infiltrates consistent with moderate pulmonary edema versus pneumonia. Clinical correlation is recommended. 2. Cardiomegaly. 3. Small right pleural effusion. 4. Degenerative changes involving the shoulders bilaterally. Chest CT 08/22/18 13:31 CONCLUSION: 1. Moderate right and small left pleural effusion with associated passive atelectasis. 2. Scattered areas of consolidation throughout both lungs including areas of nodularity within both upper lobes. Infectious or inflammatory processes are favored. I cannot completely exclude an underlying malignancy and therefore a follow-up CT of the thorax is suggested following resolution of the acute symptoms. 3. Severe coronary artery and aortic atherosclerotic calcifications. Abdomen/Pelvis CT 08/22/18 14:12 CONCLUSION: 1. Moderate-sized bilateral pleural effusions. 2. 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 3. Bibasilar alveolar consolidations consistent with compressive atelectasis/ or infiltrates. 4. Diffuse urinary bladder wall thickening suggesting cystitis. 5. Uncomplicated colonic diverticulosis. 6. Multiple stable bilateral renal cysts. 7. Diffuse calcifications throughout the pancreas consistent with chronic calcific pancreatitis. 8. Coronary artery calcifications. 9. Degenerative changes throughout the thoracolumbar spine. Hospital Course: Patient is intubated at this point and all history is obtained from the ED notes and from the ED physician. Apparently patient is a 78 years old male, is a resident of [facility] with past medical history significant for COPD, atrial fibrillation on Eliquis, CHF with an EF of 25-30%, new lung masses (recent biopsy at [facility]), NSTEMI ( catheterization with circumflex, RCA and LAD disease per [facility] records). He was brought in today by EMS from [facility] after two near syncope episode. He was fatigued and lethargic in the emergency department. Appears critically ill, was intubated for airway protection. ER workup showed his white count 13.5, hemoglobin 7.3, INR 1.7. He had black tarry stools in the ED which was guaiac positive. Patient had a BUN 31 creatinine 1.92, ALT AST was elevated 464/272. Also troponin was elevated at 5.42 BNP was 4218. Chest x-ray showed pulmonary vascular congestion and right pleural effusion. I evaluated the patient in the emergency department he was just intubated now under the influence of anesthesia medication. Patient is hypotensive with systolic blood pressure 68, I emergently placed a right subclavian central line and started him on Levophed. Will avoid further fluid resuscitation due to evidence of CHF, BNP more than 4000 and pulmonary vascular congestion on CXR. His troponin was 5 and cardiology had been consulted. Unfortunately due to active GI bleed we cannot anticoagulate or use antiplatelet therapy. Patient has a LifeVest in place we do not have any records of this in this hospital. Echo had been ordered but the previous ejection fraction reported is 25-30%. I also ordered a stat lactic acid which came back at 15. Overall his prognosis appears very poor I will also get palliative care involved early. Received vancomycin and cefepime. CT scan shows consolidation and lung nodules. Continue antibiotics with Zosyn and azithromycin After arrival to ICU patient underwent echocardiogram which on my review showed EF 15%. Troponin continued to rise. However anticoagulation or antiplatelet therapy was impossible due to GI bleed. She also underwent right thoracentesis for large pleural effusion, approximately 1.2 L of blood-tinged fluid removed. Post thoracentesis chest x-ray did not show pneumothorax. Around 6 PM patient started to tolerate becoming more hypotensive. Fluid resuscitation carried out along with additional pressors ordered in the form of Troy-Synephrine and epinephrine. Patient developed cardiac arrest and ACLS protocol was followed. Dr. Jane discussed with the son who requested DNR status. Patient at 1854 on 08/22/18
--- NOTE | 2018-08-23 13:54 | ECHRPT ---
Indication: Heart Failure CONCLUSIONS Normal left ventricular size. Wall thickness is normal. The left ventricular systolic function is severely reduced with an estimated ejection fraction less than 20%. The left atrial size is mildly dilated. [id number] mitral valve regurgitation. possible Severe aortic valve stenosis. however continuous wave Doppler appears to be suboptimal and suspect gradient may be higher than recorded Diffuse calcification of the aortic valve. There is moderate to severe tricuspid valve regurgitation. Moderate pulmonary valve regurgitation. Dilated inferior vena cava with poor inspiration collapse consistent with elevated right atrial pres sure. BP: / HR: Rhythm: MEASUREMENTS (Male / Female) Normal Values Technical Quality:Fair 2D ECHO LV Diastolic Diameter PLAX 5.1 cm 4.2 - 5.9 / 3.9 - 5.3 cm LV Systolic Diameter PLAX 4.7 cm IVS Diastolic Thickness 1.0 cm 0.6 - 1.0 / 0.6 - 0.9 cm LVPW Diastolic Thickness 1.0 cm 0.6 - 1.0 / 0.6 - 0.9 cm LV Relative Wall Thickness 0.4 LVOT Diameter 1.8 cm Aortic Root Diameter 3.4 cm LA Systolic Diameter LX 4.3 cm 3.0 - 4.0 / 2.7 - 3.8 cm DOPPLER AV Peak Velocity 133.0 cm/s AV Peak Gradient 7.1 mmHg AV Mean Gradient 4.0 mmHg AV Velocity Time Integral 17.7 cm LVOT Peak Velocity 94.7 cm/s LVOT Peak Gradient 3.6 mmHg LVOT Velocity Time Integral 15.7 cm AV Area Cont Eq vti 2.3 cm AV Area Cont Eq pk 1.8 cm Mitral E Point Velocity 94.3 cm/s Mitral A Point Velocity 36.0 cm/s Mitral E to A Ratio 2.6 LV E' Lateral Velocity 7.2 cm/s Mitral E to LV E' Lateral Ratio 13.1 LV E' Septal Velocity 5.0 cm/s Mitral E to LV E' Septal Ratio 18.8 TR Peak Velocity 409.0 cm/s TR Peak Gradient 66.9 mmHg Right Atrial Pressure 20.0 mmHg Pulmonary Artery Systolic Pressu 86.9 mmHg Right Ventricular Systolic Press 86.9 mmHg PV Peak Velocity 118.0 cm/s PV Peak Gradient 5.6 mmHg FINDINGS LEFT VENTRICLE Normal left ventricular size. Wall thickness is normal. The left ventricular systolic function is severely reduced with an estimated ejection fraction less than 20%. RIGHT VENTRICLE Normal right ventricular size and systolic function. LEFT ATRIUM The left atrial size is mildly dilated. RIGHT ATRIUM The right atrial size is normal. ATRIAL SEPTUM Normal atrial septal thickness without atrial level shunting by limited color doppler interrogation. AORTA The aortic root and proximal ascending aorta are normal in size on limited imaging. MITRAL VALVE [id number] mitral valve regurgitation. AORTIC VALVE Severe aortic valve stenosis. Diffuse calcification of the aortic valve. TRICUSPID VALVE There is moderate to severe tricuspid valve regurgitation. PULMONARY VALVE Moderate pulmonary valve regurgitation. VESSELS Dilated inferior vena cava with poor inspiration collapse consistent with elevated right atrial pres sure. PERICARDIUM No pericardial effusion. Rah Low MD, FACC, FSCAI (Electronically Signed) Final Date:23 August 2018 13:53
== END 2018-08-22 18:54 | disposition expired ==
LOC: NEPE 09:21 → NEDA 12:20 → HIMC 14:46
PROVIDERS: ADMIT Internal Medicine; ATTEND Internal Medicine